=== PATIENT | female | born 1990 | race Caucasian/White ===

== ENCOUNTER 2020-07-06 05:55 | Emergency (ER) | payer SELFPAY ==
[2020-07-06] VITALS (8 sets, daily range): BP systolic 103–131; BP diastolic 64–90; PULSE 85–109; RESP 14–19; TEMP 36.8; O2SAT 98–99; BMI 23.0
--- NOTE | 2020-07-06 06:08 | ED_ITS ---
HPI - Abdominal Pain General: Chief Complaint: Abdominal Pain Stated Complaint: n/v Time Seen by Provider: 07/06/20 05:57 History of Present Illness: HPI narrative: Patient is a 30-year-old female that presents with upper abdominal pain. Patient states she has been having this symptoms for the past 2 weeks. She states they have been fairly constant but intermittently become worse. She reports associated nausea and vomiting with this. She denies fevers or chills. She states eating and drinking makes symptoms worse. She denies any diarrhea or constipation. She denies urinary symptoms. Her last menstrual cycle was a week ago. She denies any prior surgeries. She denies radiation of the pain. MD elicited complaint: abdominal pain Pertinent past history: none Onset (ago): week(s) Location: Epigastric, LUQ and RUQ Severity: moderate Radiation: none Exacerbating factors: eating Associated Symptoms: Reports nausea and vomiting; Denies change in stool character, constipation, diarrhea, dysuria, fever(s), hematuria, melena and syncope Review of Systems General: Reports: 10 or more systems reviewed and unremarkable except in HPI and below Const: Denies: fever(s) Eyes: Denies: blurry vision ENMT: Denies: nasal congestion Card: Denies: chest pain, palpitations, syncope or dyspnea on exertion Resp: Denies: dyspnea or productive cough GI: Reports: nausea and vomiting; Denies: diarrhea, constipation, change in stool character or melena : Denies: dysuria or hematuria Musc: Denies: neck pain or back pain Skin/Breast: Denies: rash or new lesions Neuro: Denies: headache(s) or dizziness Psych: Denies: anxiety Chauncey/Lymph: Denies: easy bleeding, petechiae or purpura Physical Exam Const: COMMON NORMALS: no acute distress, patient oriented x3, alert and well nourished HENMT: COMMON NORMALS: normocephalic, atraumatic, EAC's normal, TM's normal bilaterally and Normal external nose present HEAD & SCALP: normocephalic and atraumatic FACE & SINUS: normal facial exam and face symmetric NOSE: Normal external nose present EXTERNAL AUDITORY CANAL: EAC's normal TYMPANIC MEMBRANE: TM's normal bilaterally MOUTH: Normal oral and palatal mucosa present and moist mucous membranes abnormal Eye: COMMON NORMALS: Equal, round and reactive pupils present PUPIL: Yes Equal, round and reactive pupils present Neck/C-Spine: GENERAL: Yes normal visual inspection Chest: COMMONS NORMALS: normal inspection of the chest Resp: COMMON NORMALS: normal respiratory effort, No retractions, No use of accessory muscles and clear to auscultation bilaterally AUSCULTATION: clear to auscultation bilaterally Cardio: COMMON NORMALS: regular rate, regular rhythm, S1 normal heart sound present, S2 normal heart sound present and No murmurs present (Cardio) RATE: regular rate RHYTHM: regular rhythm HEART SOUNDS: S1 normal heart sound present and S2 normal heart sound present GI: COMMON NORMALS: No hepatosplenomegaly present INSPECTION: Yes normal to inspection AUSCULTATION: Yes normoactive bowel sounds PALPATION: Yes Tenderness to palpation present (GI), Yes Guarding due to palpation present (GI) and Yes No hepatosplenomegaly present RECTAL EXAM: deferred : COMMON NORMALS: Yes no CVA tenderness BLADDER/KIDNEY EXAM: Yes no CVA tenderness Back/Pelvis: COMMON NORMALS: no CVA tenderness Neuro: COMMON NORMALS: patient oriented x3 and moves all extremities SENSORIUM/ORIENTATION: Yes alert SPEECH: speech normal Psych: COMMON NORMALS: mental status grossly normal Skin: COMMON NORMALS: no rashes or lesions noted GENERAL SKIN EXAM: no rashes or lesions noted Course Vital Signs: Vital signs: Vital Signs Temperature 98.2 F 07/06/20 06:03 Pulse Rate 98 07/06/20 08:18 Respiratory Rate 15 07/06/20 08:18 Blood Pressure 103/64 07/06/20 08:18 Pulse Oximetry 99 07/06/20 08:18 MDM - Abdominal Pain MDM Narrative: Medical decision making narrative: Patient remained stable in ED. Lab work is fairly unremarkable with exception of mildly elevated anion gap and elevated total bilirubin. Ultrasound will be obtained for further evaluation of her gallbladder and pancreas. Ultrasound shows no acute abnormalities. On reevaluation patient still having some mild guarding and tenderness. CT of her abdomen pelvis was obtained which shows no acute abnormalities other than a small left-sided ovarian cyst. We will place her on Carafate, Reglan and omeprazole for possible ulcer. Discussed with her that she will need to follow-up with her primary care doctor she may need an EGD for additional evaluation as an outpatient. Discussed signs symptoms that warrant return to the ED otherwise follow-up with her primary care doctor as discussed. She voiced understanding is agreeable to the plan of care. Lab Data: Labs: Lab Results 07/06/20 07/06/20 07/06/20 Range/Units 06:25 06:25 06:25 WBC 4.8 (4.0-10.0) 10^3/ uL RBC 4.22 (4.1-5.3) 10^6/u L Hgb 12.6 (11.5-15.3) g/dL Hct 37.9 (37.0-47.0) % MCV 89.8 (81-99) fL MCH 29.9 (28.0-34.0) pg MCHC 33.2 (30.0-36.0) g/dL RDW 12.2 (12.1-15.1) % Plt Count 227 (130-400) 10^3/c mm MPV 9.7 (7.4-10.4) fL Neut % (Auto) 66.0 % Lymph % (Auto) 25.1 % Slope % (Auto) 7.5 % Eos % (Auto) 0.8 % Baso % (Auto) 0.6 % Neut # (Auto) 3.18 (1.8-7.7) 10^3/u L Lymph # (Auto) 1.2 (0.8-4.8) 10^3/u L Slope # (Auto) 0.4 (0.2-0.9) 10^3/u L Eos # (Auto) 0.0 (0.0-0.8) 10^3/u L Baso # (Auto) 0.0 (0.0-0.1) 10^3/u L Nucleated RBC % (a uto) 0 % Nucleated RBCs # 0.0 /100WBC Sodium 136 (136-145) mmol/L Potassium 3.5 (3.5-5.1) mmol/L Chloride 99 (98-107) mmol/L Carbon Dioxide 19 L (22-29) mmol/L Anion Gap 21.5 H (5-19) BUN 10 (6-20) mg/dL Creatinine 0.6 (0.5-0.9) mg/dL GFR Calculation 119.0 (90-130) mL/min Glucose 104 (65-115) mg/dL Calculated Osmolal ity 281 L (285-295) mOsm/k g Calcium 9.2 (8.5-10.5) mg/dL Total Bilirubin 1.9 H (0.15-1.2) mg/dL AST 11 (0-32) U/L ALT 11 (0-33) U/L Alkaline Phosphata se 53 (35-105) IU/L C-Reactive Protein 2.8 (0.0-4.9) mg/L Total Protein 7.6 (6.6-8.7) g/dL Albumin 4.6 (3.5-5.2) g/dL Globulin 3.0 (1.3-4.6) g/dL Lipase 20 (13-60) U/L HCG, Qual Negative (Negative) Urine Color (Yellow) Urine Appearance (CLEAR) Urine pH (5-7) Ur Specific Gravit y (1.005-1.030) Urine Protein (Negative) Urine Glucose (UA) (Normal) Urine Ketones (Negative) Urine Blood (Negative) Urine Nitrate (Negative) Urine Bilirubin (Negative) Urine Urobilinogen (Negative) mg/dL Ur Leukocyte Penny ase (Negative) Urine RBC (0-2) /hpf Urine WBC (0-5) /hpf Ur Squamous Epith Cells (0-5) /hpf Amorphous Sediment Urine Bacteria (NONE) /hpf Urine Mucus /hpf 07/06/ Range/Units 06:25 WBC (4.0-10.0) 10^3/ uL RBC (4.1-5.3) 10^6/u L Hgb (11.5-15.3) g/dL Hct (37.0-47.0) % MCV (81-99) fL MCH (28.0-34.0) pg MCHC (30.0-36.0) g/dL RDW (12.1-15.1) % Plt Count (130-400) 10^3/c mm MPV (7.4-10.4) fL Neut % (Auto) % Lymph % (Auto) % Slope % (Auto) % Eos % (Auto) % Baso % (Auto) % Neut # (Auto) (1.8-7.7) 10^3/u L Lymph # (Auto) (0.8-4.8) 10^3/u L Slope # (Auto) (0.2-0.9) 10^3/u L Eos # (Auto) (0.0-0.8) 10^3/u L Baso # (Auto) (0.0-0.1) 10^3/u L Nucleated RBC % (a uto) % Nucleated RBCs # /100WBC Sodium (136-145) mmol/L Potassium (3.5-5.1) mmol/L Chloride (98-107) mmol/L Carbon Dioxide (22-29) mmol/L Anion Gap (5-19) BUN (6-20) mg/dL Creatinine (0.5-0.9) mg/dL GFR Calculation (90-130) mL/min Glucose (65-115) mg/dL Calculated Osmolal ity (285-295) mOsm/k g Calcium (8.5-10.5) mg/dL Total Bilirubin (0.15-1.2) mg/dL AST (0-32) U/L ALT (0-33) U/L Alkaline Phosphata se (35-105) IU/L C-Reactive Protein (0.0-4.9) mg/L Total Protein (6.6-8.7) g/dL Albumin (3.5-5.2) g/dL Globulin (1.3-4.6) g/dL Lipase (13-60) U/L HCG, Qual (Negative) Urine Color Yellow (Yellow) Urine Appearance Hazy A (CLEAR) Urine pH 5 (5-7) Ur Specific Gravit y 1.025 (1.005-1.030) Urine Protein Neg (Negative) Urine Glucose (UA) Norm (Normal) Urine Ketones 3+ H (Negative) Urine Blood Neg (Negative) Urine Nitrate Negative (Negative) Urine Bilirubin Neg (Negative) Urine Urobilinogen Norm (Negative) mg/dL Ur Leukocyte Penny ase Trace H (Negative) Urine RBC 0-4 H (0-2) /hpf Urine WBC 5-10 H (0-5) /hpf Ur Squamous Epith Cells 0-4 H (0-5) /hpf Amorphous Sediment Not Reportable Urine Bacteria 1+ H (NONE) /hpf Urine Mucus Trace /hpf Discharge Plan Discharge Patient Disposition: Home Clinical Impression: Abdominal pain Qualifiers: Abdominal location: generalized Qualified Code(s): R10.84 - Generalized abdominal pain Condition: Good Prescriptions: New Reglan 10 mg tablet 10 mg PO Q6H 7 Days Qty: 28 RF: 0 Carafate 1 gram tablet 1 g PO Q6H Qty: 40 RF: 0 omeprazole 40 mg capsule,delayed release(DR/EC) 40 mg PO DAILY Qty: 30 RF: 0 Discharge Orders: Discharge ED (Routine); Ordered 07/06/20 Ordered By: Rome Ortiz Discharge Diet: Advance as tolerated Discharge Activity: Resume usual activity Patient Instructions: Abdominal Pain (ED) Activity Restrictions/Additional Instructions: Take your medications as prescribed. Begin with a clear liquid diet and gradually advance to your normal diet as tolerated. Follow-up with your primary care doctor in the next 7 to 10 days. You may need additional evaluation with an EGD to rule out any potential ulcers. Return to the ED if symptoms return or worsen. Coding Level of Care Code ED Property Management Coordinator for Demetri Fwd Exam Comprehensive
[2020-07-06] MEDS: ondansetron 2 mg/ML SDV 2 mL 4 MG IVP (06:29)
[2020-07-06] MEDS: sodium chloride 0.9% 1,000 ML 999 ML IV (06:30)
[2020-07-06] MEDS: ketorolac 30 mg/mL INJ IVP (06:30)
[2020-07-06 06:32] LABS: Basophils % 0.6 %; Eosinophils % 0.8 %; Hematocrit 37.9 % (37.0-47.0); Hemoglobin 12.6 g/dL (11.5-15.3); Lymphocytes # 1.2 10^3/uL (0.8-4.8); Lymphocytes % 25.1 %; Mean Corpuscular HGB Conc 33.2 g/dL (30.0-36.0); Mean Corpuscular Hemoglobin 29.9 pg (28.0-34.0); Mean Corpuscular Volume 89.8 fL (81-99); Mean Platelet Volume 9.7 fL (7.4-10.4); Monocytes # 0.4 10^3/uL (0.2-0.9); Monocytes % 7.5 %; Neutrophils # 3.18 10^3/uL (1.8-7.7); Nucleated Red Blood Cells % 0 %; Platelet Count 227 10^3/cmm (130-400); Red Blood Count 4.22 10^6/uL (4.1-5.3); Red Cell Distribution Width 12.2 % (12.1-15.1); White Blood Count 4.8 10^3/uL (4.0-10.0)
[2020-07-06 06:37] LABS: HCG Qualitative Urine. Negative (Negative)
[2020-07-06 06:42] LABS: Bilirubin Urine Neg (Negative); Blood Urine Neg (Negative); Glucose Urine UA Norm (Normal); Ketones Urine 3+ (Negative); Leukocyte Esterase Urine Trace (Negative); Nitrate Urine Negative (Negative); Protein Urine Neg (Negative); Specific Gravity, Urine 1.025 (1.005-1.030); Urine Appearance Hazy (CLEAR); Urine Color Yellow (Yellow); Urobilinogen Urine Norm (Negative); pH Urine 5 (5-7)
[2020-07-06 06:43] LABS: Add Urine Microscopic? YES
[2020-07-06 06:44] LABS: RBC Urine 0-4 /hpf (0-2)
[2020-07-06 06:45] LABS: Add Urine Culture? No; Bacteria Urine 1+ /hpf; Mucus Urine TRACE /hpf; Squamous Epithelial Cell Urine 0-4 /hpf (0-5)
[2020-07-06 06:48] LABS: Alanine Aminotransferase 11 U/L (0-33); Albumin Level 4.6 g/dL (3.5-5.2); Alkaline Phosphatase 53 IU/L (35-105); Anion Gap 21.5 (5-19); Aspartate Amino Transferase 11 U/L (0-32); Blood Urea Nitrogen 10 mg/dL (6-20); C Reactive Protein 2.8 mg/L (0.0-4.9); Calcium 9.2 mg/dL (8.5-10.5); Carbon Dioxide 19 mmol/L (22-29); Chloride 99 mmol/L (98-107); Glucose 104 mg/dL (65-115); Lipase 20 U/L (13-60); Osmolality Calculated 281 mOsm/kg (285-295); Potassium 3.5 mmol/L (3.5-5.1); Sodium 136 mmol/L (136-145); Total Bilirubin 1.9 mg/dL (0.15-1.2); Total Protein 7.6 g/dL (6.6-8.7)
--- NOTE | 2020-07-06 06:50 | US_ITS ---
WS: [id number] ULTRASOUND ABDOMEN LIMITED CLINICAL INFORMATION: epigastric/RUQ pain - elevated total bilirubin COMPARISON: None. FINDINGS: Liver Size: Normal. Craniocaudal length: 13.2 cm. Echogenicity: Normal. Surface nodularity: None. Mass (size and location): None. Bile ducts Intrahepatic ducts: Normal. Common bile duct diameter: 0.3 cm. Gallbladder Normal. Gallstones: None. Gallbladder sludge: None. Gallbladder wall thickening: None. Pericholecystic fluid: None. Sonographic Norman sign: Absent. Pancreas Normal as visualized. Right kidney: Normal. Hydronephrosis: None. Size: 9.2 cm x 4.6 cm x 4.1 cm. Abdominal aorta and IVC Visualized portions are normal. Ascites: None. US/US gall bladder [id number] IMPRESSION: Normal abdominal ultrasound
--- NOTE | 2020-07-06 06:55 | PC.NURSE ---
Report received from JAYLAN Herrera.
--- NOTE | 2020-07-06 07:38 | CT_ITS ---
WS: [id number] CT ABDOMEN PELVIS TECHNIQUE: Contrast-enhanced CT of the abdomen and pelvis with coronal and sagittal reformatted image s. CLINICAL INFORMATION: gen abd pain with guarding COMPARISON: CT 2017 DLP: 253.[address] scans at [facility] use at least one of these dose optimization techniques: automat ed exposure control; mA and/or kV adjustment per patient size (includes targeted exams where dose is matched to clinical indication); or iterative reconstruction. FINDINGS: Normal liver. Normal portal vein and splenic vein. Adrenal glands are normal. Normal renal parenchyma l enhancement. Normal spleen. Lung bases are well aerated. Normal GE junction. Normal caliber abdomin al aorta. Tiny fat-containing umbilical hernia. Normal gallbladder. No abdominal or pelvic lymphadenopathy. No evidence of acute appendicitis. No hamzah dence of high-grade small or large bowel obstruction. Small amount of free fluid in the pelvis. Small bilateral ovarian cysts largest in the left measuring 7 mm. No inguinal lymphadenopathy. CT/CT abdomen pelvis w con* [id number] IMPRESSION: 1. Normal appendix. No evidence of acute appendicitis. 2. No evidence of high-grade small or large bowel obstruction. 3. Small amount of free fluid in the pelvis. Small left ovarian cyst measuring 10 mm. 4. No hydronephrosis. No other significant findings. Notified Rome Ortiz DO at 07/06/2020 8:37 AM.
[2020-07-06] MEDS: morphine 4 mg/mL SDV 1 mL IVP (07:51)
[2020-07-06] MEDS: iohexol 300 mg/mL 100 mL Btl IV (08:17)
== END 2020-07-06 08:56 | disposition home or self-care (01) ==
PROVIDERS: Emergency Provider Emergency Medicine
DX: R10.84 Generalized abdominal pain (principal)
CPT/HCPCS: 74177; 76705; 80053; 81001; 81025; 83690; 85025; 86140; 96361; 96374; 96375; 99283; J1885; J2270; J2405; J7030; Q9967

== ENCOUNTER 2020-07-11 13:02 | Emergency (ER) | payer SELFPAY ==
[2020-07-11 13:29] VITALS: BP 123/75; PULSE 87; RESP 16; TEMP 36.7; O2SAT 97; BMI 22.2
--- NOTE | 2020-07-11 15:15 | CTR_ITS ---
PROCEDURE INFORMATION: Exam: CT Abdomen And Pelvis With Contrast Exam date and time: 07/11/2020 4:34 PM Age: 30 years old Clinical indication: Abdominal pain; Localized; Right lower quadrant (rlq); Patient HX: Shaking, rlq pain, n/v. Last bm x 1 week TECHNIQUE: Imaging protocol: Computed tomography of the abdomen and pelvis with contrast. Axial, coronal and sagittal reformatted images were created and reviewed. Radiation optimization: All CT scans at this facility use at least one of these dose optimization techniques: automated exposure control; mA and/or kV adjustment per patient size (includes targeted exams where dose is matched to clinical indication); or iterative reconstruction. Contrast material: OMNI 300; Contrast volume: 75 ml; Contrast route: INTRAVENOUS (IV); COMPARISON: CT abdomen pelvis w con* [id number] 07/06/2020 8:25 AM RADIATION DOSE METRICS: Total DLP (mGy-cm): 505.46 FINDINGS: Liver: Unremarkable. Gallbladder and bile ducts: No radiodense gallstones. No biliary ductal dilatation. Pancreas: Unremarkable. Spleen: Unremarkable. Adrenal glands: Normal. No mass. Kidneys and ureters: No mass. No radiodense calculi. No hydronephrosis. Stomach and bowel: Moderate amount of retained stool in the colon. No obstruction. No bowel wall thickening. No pneumatosis. Appendix: Normal. Intraperitoneal space: Trace nonspecific free pelvic fluid, likely physiologic. No organized fluid collection. No free air. Vasculature: Unremarkable. No aneurysm. Lymph nodes: No pathologically enlarged lymph nodes. Urinary bladder: Unremarkable as visualized. Reproductive: Unremarkable. Bones/joints: No acute osseous abnormality. Soft tissues: Unremarkable. CT/CT abdomen pelvis w con* [id number] [address]PRESSION: 1. No CT evidence of acute intra-abdominal or pelvic pathology. 2. Additional findings, as above. Radiation Dose CTDIVOL = (mGy): DLP = 505.46 (mGy-cm)
[2020-07-11 15:40] VITALS: BP 116/80; PULSE 97; RESP 20; O2SAT 98
[2020-07-11 15:56] LABS: HCG Qualitative Urine. Negative (Negative)
[2020-07-11 16:02] LABS: Add Urine Microscopic? YES; Bilirubin Urine Neg (Negative); Blood Urine 3+ (Negative); Glucose Urine UA Norm (Normal); Ketones Urine 3+ (Negative); Leukocyte Esterase Urine Negative (Negative); Nitrate Urine Negative (Negative); Protein Urine Neg (Negative); Specific Gravity, Urine 1.015 (1.005-1.030); Urine Appearance Clear (CLEAR); Urine Color Yellow (Yellow); Urobilinogen Urine Norm (Negative); pH Urine 5 (5-7)
[2020-07-11 16:03] LABS: Add Urine Culture? No; Bacteria Urine TRACE /hpf; RBC Urine 0-4 /hpf (0-2); Squamous Epithelial Cell Urine RARE /hpf (0-5)
--- NOTE | 2020-07-11 16:14 | ED_ITS ---
HPI - General Adult General: Chief complaint: General Medical Stated complaint: VAGINAL BLEED/SHAKING Time Seen by Provider: 07/11/20 14:21 Source: patient and family (mother) Mode of arrival: ambulatory Limitations: no limitations History of Present Illness: HPI narrative: The patient is a 30-year-old female. She is here with her mother. Unfortunately neither the patient nor her mother is a good historian and so a proper history is difficult to obtain. The patient presents with abdominal pain which both the mother and the patient think is due to a stomach ulcer. However the pain is in her lower abdomen. Pain appears to be worse on eating according to the mother but the patient says there is no known aggravating or relieving factor. She denies any nausea or vomiting. She complains of a headache. She also complains of vaginal spotting but she is unsure if this is her regular menstrual cycle that has started. She denies any urinary symptoms, denies diarrhea. She also says she started shaking today. Onset (ago): day(s) (1) Associated symptoms: Reports headache(s); Deny dyspnea, nausea, rash, palpitations or vomiting Review of Systems General: Reports: 10 or more systems reviewed and unremarkable except in HPI and below Const: Denies: fever(s), chills or body aches Eyes: Denies: change in vision or blurry vision ENMT: Denies: throat pain, enlarged tonsils, odynophagia, hoarseness, mouth pain or swelling of lips/tongue Card: Denies: palpitations, irregular heart rhythm, edema or swelling of feet/ankles Resp: Denies: dyspnea, productive cough or non-productive cough GI: Reports: abdominal pain; Denies: nausea or vomiting : Denies: flank pain, difficulty voiding, dysuria, urinary frequency, urinary urgency or urinary hesitancy Musc: Denies: neck pain, back pain or extremity swelling Skin/Breast: Denies: rash, pruritus or erythema Neuro: Reports: headache(s); Denies: numbness in extremities or weakness in extremities Endo: Denies: polyuria, polydipsia or tired all the time [facility] ED Female Reproductive History: Date of last menstrual period: 06/24/20 Physical Exam Const: COMMON NORMALS: no acute distress, average body habitus, patient oriented x3, no limitations, healthy appearing, alert and well nourished HENMT: COMMON NORMALS: normocephalic, atraumatic and moist oral mucous membranes HEAD & SCALP: normocephalic and atraumatic Neck/C-Spine: COMMON NORMALS: no meningeal signs and no JVD Resp: COMMON NORMALS: normal respiratory effort, No retractions, No use of accessory muscles, clear to auscultation bilaterally and percussion normal AUSCULTATION: clear to auscultation bilaterally PERCUSSION: percussion normal Cardio: COMMON NORMALS: no JVD, regular rate, regular rhythm, S1 normal heart sound present, S2 normal heart sound present, No gallops present (Cardio), No clicks present (Cardio), No murmurs present (Cardio), No rub (Cardio) and Peripheral pulses 2+ throughout RATE: regular rate RHYTHM: regular rhythm HEART SOUNDS: S1 normal heart sound present and S2 normal heart sound present PERIPHERAL PULSES: Peripheral pulses 2+ throughout GI: COMMON NORMALS: Normal to inspection, nondistended, normoactive bowel sounds present, Soft to palpation, No hepatosplenomegaly present, no masses and no bruits PALPATION: Yes Soft to palpation, Yes Tenderness to palpation present (GI) Details: LLQ and RLQ, No Guarding due to palpation present (GI), No Rigid due to palpation, Yes No hepatosplenomegaly present and No Rebound tenderness present Extremity: COMMON NORMALS: normal to inspection, full ROM, capillary refill normal, no calf tenderness and no pedal edema Neuro: COMMON NORMALS: patient oriented x3 SENSORIUM/ORIENTATION: Yes alert MENINGEAL SIGNS: Yes no meningeal signs Skin: COMMON NORMALS: no rashes or lesions noted, no wounds, turgor normal, no jaundice, no petechiae and no mottling GENERAL SKIN EXAM: no rashes or lesions noted and turgor normal Course Reevaluation(s): Reevaluation #1: Discussed her lab and imaging findings with her. Explained that her lipase is mildly elevated and she probably has a mild case of acute pancreatitis. Other labs and imaging are unremarkable. We will discharge her home with a prescription for oral pain medication. She is advised to consume a liquid diet and advance her diet as tolerated. The patient and her mother voiced understanding and they are in agreement with the plan Time: 18:16 Vital Signs: Vital signs: Vital Signs Temperature 98.1 F 03/02/21 13:29 Pulse Rate 96 07/11/20 18:34 Respiratory Rate 16 07/11/20 18:34 Blood Pressure 125/89 07/11/20 18:34 Pulse Oximetry 97 07/11/20 18:34 MDM - General Adult MDM Narrative: Medical decision making narrative: 30-year-old female patient who presents to the emergency department with abdominal pain. She was seen recently for the same thing and diagnosed with gastritis. Today evaluation shows a mildly elevated lipase being managed as a case of acute pancreatitis. She is discharged home with oral pain medication and dietary modification until her pain resolves. Her mother is also concerned that she may have a stomach ulcer or gastritis and so an outpatient endoscopy will be done on this patient. A referral to case management was done for this. Medical Records: Attestation: I reviewed the patient's medical records. Lab Data: Attestation: I reviewed the patient's lab results. Labs: Lab Results 07/11/20 07/11/20 07/11/20 Range/Units 14:30 14:30 15:36 WBC Cancelled Corrected WBC Cancelled RBC Cancelled Hgb Cancelled Hct Cancelled MCV Cancelled MCH Cancelled MCHC Cancelled RDW Cancelled Plt Count Cancelled MPV Cancelled Gran % Cancelled Neut % (Auto) Cancelled Lymph % (Auto) Cancelled [place] % (Auto) Cancelled Eos % (Auto) Cancelled Baso % (Auto) Cancelled Neut # (Auto) Cancelled Lymph # (Auto) Cancelled [place] # (Auto) Cancelled Eos # (Auto) Cancelled Baso # (Auto) Cancelled Absolute Gran (aut o) Cancelled Nucleated RBC % (a uto) Cancelled Nucleated RBCs # Cancelled Sodium (136-145) mmol/L Potassium (3.5-5.1) mmol/L Chloride (98-107) mmol/L Carbon Dioxide (22-29) mmol/L Anion Gap (5-19) BUN (6-20) mg/dL Creatinine (0.5-0.9) mg/dL GFR Calculation (90-130) mL/min Glucose (65-115) mg/dL Calculated Osmolal ity (285-295) mOsm/k g Calcium (8.5-10.5) mg/dL Total Bilirubin (0.15-1.2) mg/dL AST (0-32) U/L ALT (0-33) U/L Alkaline Phosphata se (35-105) IU/L C-Reactive Protein (0.0-4.9) mg/L Total Protein (6.6-8.7) g/dL Albumin (3.5-5.2) g/dL Globulin (1.3-4.6) g/dL Lipase (13-60) U/L HCG, Qual Negative (Negative) Urine Color Yellow (Yellow) Urine Appearance Clear (CLEAR) Urine pH 5 (5-7) Ur Specific Gravit y 1.015 (1.005-1.030) Urine Protein Neg (Negative) Urine Glucose (UA) Norm (Normal) Urine Ketones 3+ H (Negative) Urine Blood 3+ H (Negative) Urine Nitrate Negative (Negative) Urine Bilirubin Neg (Negative) Urine Urobilinogen Norm (Negative) mg/dL Ur Leukocyte Penny ase Negative (Negative) Urine RBC 0-4 H (0-2) /hpf Urine WBC None (0-5) /hpf Ur Squamous Epith Cells Rare (0-5) /hpf Amorphous Sediment Not Reportable Urine Bacteria Trace (NONE) /hpf 07/11/20 07/11/20 Range/Units 15:36 16:28 WBC 3.6 L Corrected WBC RBC 4.08 L Hgb 12.6 Hct 36.5 L MCV 89.5 MCH 30.9 MCHC 34.5 RDW 12.7 Plt Count 228 MPV 10.1 Gran % Neut % (Auto) 53.0 Lymph % (Auto) 34.8 [place] % (Auto) 10.7 Eos % (Auto) 0.6 Baso % (Auto) 0.6 Neut # (Auto) 1.89 Lymph # (Auto) 1.2 [place] # (Auto) 0.4 Eos # (Auto) 0.0 Baso # (Auto) 0.0 Absolute Gran (aut o) Nucleated RBC % (a uto) 0 Nucleated RBCs # 0.0 Sodium 141 (136-145) mmol/L Potassium 3.5 (3.5-5.1) mmol/L Chloride 103 (98-107) mmol/L Carbon Dioxide 20 L (22-29) mmol/L Anion Gap 21.4 H (5-19) BUN 3 L (6-20) mg/dL Creatinine 0.6 (0.5-0.9) mg/dL GFR Calculation 119.0 (90-130) mL/min Glucose 89 (65-115) mg/dL Calculated Osmolal ity 288 (285-295) mOsm/k g Calcium 9.1 (8.5-10.5) mg/dL Total Bilirubin 1.0 (0.15-1.2) mg/dL AST 11 (0-32) U/L ALT 11 (0-33) U/L Alkaline Phosphata se 56 (35-105) IU/L C-Reactive Protein 1.7 (0.0-4.9) mg/L Total Protein 7.7 (6.6-8.7) g/dL Albumin 4.7 (3.5-5.2) g/dL Globulin 3.0 (1.3-4.6) g/dL Lipase 79 H (13-60) U/L HCG, Qual (Negative) Urine Color (Yellow) Urine Appearance (CLEAR) Urine pH (5-7) Ur Specific Gravit y (1.005-1.030) Urine Protein (Negative) Urine Glucose (UA) (Normal) Urine Ketones (Negative) Urine Blood (Negative) Urine Nitrate (Negative) Urine Bilirubin (Negative) Urine Urobilinogen (Negative) mg/dL Ur Leukocyte Penny ase (Negative) Urine RBC (0-2) /hpf Urine WBC (0-5) /hpf Ur Squamous Epith Cells (0-5) /hpf Amorphous Sediment Urine Bacteria (NONE) /hpf Imaging Data^: CT Abd/Pel: Attestation: I personally reviewed and interpreted this imaging study as follows: Radiologist's impression: [address] [address] [address] Scan Report Signed Patient: Vicky Pal #: [id number] : 1990Acct#:[id number] Age/Sex: 30 FADM Date: 07/11/20 Loc: ERRoom/Bed: Attending Dr: Ordering Provider/Ordering MD: Melanie Bloom MD, [facility] [place] Date of Service: 07/11/20 Procedure(s): CT abdomen pelvis w con* [id number] Accession Number(s): [id number] Report Number: [id number] PROCEDURE INFORMATION: Exam: CT Abdomen And Pelvis With Contrast Exam date and time: 07/11/2020 4:34 PM Age: 30 years old Clinical indication: Abdominal pain; Localized; Right lower quadrant (rlq); Patient HX: Shaking, rlq pain, n/v. Last bm x 1 week TECHNIQUE: Imaging protocol: Computed tomography of the abdomen and pelvis with contrast. Axial, coronal and sagittal reformatted images were created and reviewed. Radiation optimization: All CT scans at this facility use at least one of these dose optimization techniques: automated exposure control; mA and/or kV adjustment per patient size (includes targeted exams where dose is matched to clinical indication); or iterative reconstruction. Contrast material: OMNI 300; Contrast volume: 75 ml; Contrast route: INTRAVENOUS (IV); COMPARISON: CT abdomen pelvis w con* [id number] 07/06/2020 8:25 AM RADIATION DOSE METRICS: Total DLP (mGy-cm): 505.46 FINDINGS: Liver: Unremarkable. Gallbladder and bile ducts: No radiodense gallstones. No biliary ductal dilatation. Pancreas: Unremarkable. Spleen: Unremarkable. Adrenal glands: Normal. No mass. Kidneys and ureters: No mass. No radiodense calculi. No hydronephrosis. Stomach and bowel: Moderate amount of retained stool in the colon. No obstruction. No bowel wall thickening. No pneumatosis. Appendix: Normal. Intraperitoneal space: Trace nonspecific free pelvic fluid, likely physiologic. No organized fluid collection. No free air. Vasculature: Unremarkable. No aneurysm. Lymph nodes: No pathologically enlarged lymph nodes. Urinary bladder: Unremarkable as visualized. Reproductive: Unremarkable. Bones/joints: No acute osseous abnormality. Soft tissues: Unremarkable. CT/CT abdomen pelvis w con* [id number]: 1[address] No CT evidence of acute intra-abdominal or pelvic pathology. 2. Additional findings, as above. Radiation Dose CTDIVOL = (mGy): DLP = 505.46 (mGy-cm) Dictated By:Ethan Shultz MD Signed By:Ethan Shultzigned Date/Time:07/11/201712 DD/ 10 Discharge Plan Discharge Patient Disposition: Home Clinical Impression: Acute pancreatitis Qualifiers: Pancreatitis type: unspecified pancreatitis type Acute pancreatitis complication: no infection or necrosis Qualified Code(s): K85.90 - Acute pancreatitis without necrosis or infection, unspecified Condition: Stable Prescriptions: [place] 5-325 mg tablet 1 tab PO Q8H PRN (Reason: pancreatitis) Qty: 12 RF: 0 Continued metoclopramide HCl [Reglan] 10 mg tablet 10 mg PO Q6H 7 Days Qty: 28 RF: 0 sucralfate [Carafate] 1 gram tablet 1 g PO Q6H Qty: 40 RF: 0 omeprazole 40 mg capsule,delayed release(DR/EC) 40 mg PO DAILY@07 RF: 0 Discharge Orders: Discharge ED (Routine); Ordered 07/11/20 Ordered By: Melanie Bloom Discharge Diet: As Directed Discharge Activity: Increase activity as tolerated Patient Instructions: Pancreatitis (ED), Opioid Safety Activity Restrictions/Additional Instructions: Return for any new or worsening symptoms. Follow-up with your primary care provider tomorrow as scheduled. You will be contacted to schedule an upper GI endoscopy to evaluate to see if you have stomach ulcers. Consume a liquid diet for the next 2 days and if your pain is improving you can advance to a soft diet, then a semisolid diet, then regular diet. If at any time your symptoms get worse or you are unable to keep any food or liquid down please return to be seen. Coding Level of Care Code ED Cnc Operator Machinist for Demetri Fwhannah Exam Comprehensive
[2020-07-11 16:30] VITALS: BP 120/85; PULSE 95; RESP 18; O2SAT 98
[2020-07-11 16:35] LABS: Basophils % 0.6 %; Eosinophils % 0.6 %; Hematocrit 36.5 % (37.0-47.0); Hemoglobin 12.6 g/dL (11.5-15.3); Lymphocytes # 1.2 10^3/uL (0.8-4.8); Lymphocytes % 34.8 %; Mean Corpuscular HGB Conc 34.5 g/dL (30.0-36.0); Mean Corpuscular Hemoglobin 30.9 pg (28.0-34.0); Mean Corpuscular Volume 89.5 fL (81-99); Mean Platelet Volume 10.1 fL (7.4-10.4); Monocytes # 0.4 10^3/uL (0.2-0.9); Monocytes % 10.7 %; Neutrophils # 1.89 10^3/uL (1.8-7.7); Nucleated Red Blood Cells % 0 %; Platelet Count 228 10^3/cmm (130-400); Red Blood Count 4.08 10^6/uL (4.1-5.3); Red Cell Distribution Width 12.7 % (12.1-15.1); White Blood Count 3.6 10^3/uL (4.0-10.0)
[2020-07-11 16:52] LABS: Alanine Aminotransferase 11 U/L (0-33); Albumin Level 4.7 g/dL (3.5-5.2); Alkaline Phosphatase 56 IU/L (35-105); Anion Gap 21.4 (5-19); Aspartate Amino Transferase 11 U/L (0-32); Blood Urea Nitrogen 3 mg/dL (6-20); C Reactive Protein 1.7 mg/L (0.0-4.9); Calcium 9.1 mg/dL (8.5-10.5); Carbon Dioxide 20 mmol/L (22-29); Chloride 103 mmol/L (98-107); Glucose 89 mg/dL (65-115); Lipase 79 U/L (13-60); Osmolality Calculated 288 mOsm/kg (285-295); Sodium 141 mmol/L (136-145); Total Protein 7.7 g/dL (6.6-8.7)
[2020-07-11] MEDS: iohexol 300 mg/mL 100 mL Btl IV (16:55)
[2020-07-11 16:57] LABS: Potassium 3.5 mmol/L (3.5-5.1)
[2020-07-11 17:43] VITALS: RESP 18; O2SAT 98
[2020-07-11] MEDS: morphine 4 mg/mL SDV 1 mL IVP (17:43)
[2020-07-11] MEDS: ondansetron 2 mg/ML SDV 2 mL 4 MG IVP (17:45)
[2020-07-11 18:34] VITALS: BP 125/89; PULSE 96; RESP 16; O2SAT 97
--- NOTE | 2020-07-12 12:15 | DCPLANNER ---
recycling program manager had message to schedule a follow up appointment for patient with [facility] General Surgery. recycling program manager e mailed patients information to both Birgit and Zenaida at [facility] General Surgery. Patients information will be printed and reviewed. Clinic will call patient with appointment information.
--- NOTE | 2020-07-13 12:39 | DCPLANNER ---
Patient has a follow up appointment scheduled for , July 20, 2020 at 11:[address] Monaco at [facility] General Surgery. Clinic will call patient with appointment information.
--- NOTE | 2020-08-02 15:37 | DCPLANNER ---
Patient had a follow up appointment scheduled for 07.20.[address] Monaco with general surgery - patient did attend appointment.
== END 2020-07-11 18:36 | disposition home or self-care (01) ==
PROVIDERS: Emergency Provider Family Medicine
DX: K85.90 Acute pancreatitis without necrosis or infection, unspecified (principal)
CPT/HCPCS: 36415; 74177; 80053; 81001; 81025; 83690; 85025; 86140; 96374; 96375; 99283; J2270; J2405; Q9967

== ENCOUNTER → 2020-07-20 12:16 | Outpatient (BNVA) | payer SELFPAY | PROVIDERS: Visit Provider Surgery | DX: R10.9 Unspecified abdominal pain (principal); Z20.822 Contact with and (suspected) exposure to COVID-19 | CPT/HCPCS: 87635 ==

== ENCOUNTER 2020-07-25 06:03 | Day surgery (SDC) | payer SELFPAY ==
[2020-07-21 09:14] VITALS: BMI 22.6
[2020-07-25 06:25] VITALS: BP 125/81; PULSE 77; RESP 18; TEMP 36.8; O2SAT 98
--- NOTE | 2020-07-25 06:25 | W.PM.OPSUD ---
Surgery/Procedure H&P Update DATE OF PROCEDURE: July 25, 2020 DATE H&P PERFORMED: 07/20/20 H&P UPDATE INFORMATION: I have reviewed H&P completed within last 30 days, I have examined patient prior to procedure and No changes to prior documentation PREOP DIAGNOSIS: Epigastric pain and hematemesis PRIMARY INDICATION FOR PROCEDURE: The same PLANNED PROCEDURE: Operation Date: 07/25/20 07:00 Proposed Procedures p EGD 88074 r10.9(Not Applicable) - Kavon Monaco MD
[2020-07-25] MEDS: sodium chloride 0.9% 1,000 ML 30 ML IV (06:46)
[2020-07-25 06:49] LABS: OR HCG Qualitative Urine Negative (Negative)
--- NOTE | 2020-07-25 06:58 | ANES.PREANE2 ---
Pre-Anesthetic Assessment Pre-Anesthetic Assessment: Height/Weight: Height 1.5 m Weight 50.802 kg Temp Pulse Resp BP Pulse Ox 98.2 F 77 18 125/81 98 07/25/20 06:25 07/25/20 06:25 07/25/20 06:25 07/25/20 06:25 07/25/20 06:25 Preop Diagnosis: Epigastric pain and hematemesis Proposed Procedure: Operation Date: 07/25/20 07:00 Proposed Procedures p EGD 33022 r10.9(Not Applicable) - Kavon Monaco MD Familial anesthetic complications: none Was Beta Carlene taken within 24 hours: N/A Was Clonidine taken within 24 hours: N/A Last intake: Intake Last Liquid Date 07/24/20 Last Liquid Time 22:00 Last Solid Date 07/24/20 Last Solid Time 19:00 Last Intake: 22:00 Social: Social History: No alcohol and No tobacco Exam: Pre-Anes Outpt Exam: alert, oriented x 3, clear to auscultation bilaterally and regular rate & rhythm Airway: Submandibular: WNL Cervical ROM: WNL MP: 2 Pulmonary: Pulmonary: None reported CV/HEM: CV/HEM: None reported : : None reported Hepatic: Hepatic: None reported GI: GI: GERD Metabolic: Metabolic: None reported Musc/skel: Musc/skel: None reported Neuropsych: Neuropsych: BROWN Anesthetic Plan: ASA status: 1 Anesthesia: MAC Risk of > 500 ml blood loss (7ml/kg in children): No Meds/Allergies Current Medications: Current Medications Generic Name Dose Route Start Last Admin Trade Name Freq PRN Reason Stop Dose Admin Sodium Chloride 1,000 mls @ 30 ml s/hr 07/25/20 06:30 07/25/20 06:46 Sodium Chloride 0.9% IV 30 mls/hr .Q24H AMANDA Administration PFSH Anesthesia PFSH: Family History Denies family history of Anesthesia complication Bleeding disorder Female Reproductive History: Date of last menstrual period: 07/10/20 Data Anesthesia Other Labs: Laboratory Results - last 48 hr 07/25/20 06:48 Urine HCG, Qual Negative Cardiac Studies: No Data to Display
[2020-07-25 07:18] VITALS: BP 99/60; PULSE 66; RESP 18; TEMP 36.5; O2SAT 97
--- NOTE | 2020-07-25 07:28 | ANE.PACU2 ---
Inpatient post-anesthesia follow up: Airway intact: Yes Vital signs: Temperature 98.2 F Pulse Rate 77 Respiratory Rate 18 Blood Pressure 125/81 Pulse Oximetry 98 Oxygen Delivery Me thod Room Air Oxygen Flow Rate Fraction of Inspir ed Oxygen Hydration adequate: Yes Nausea and vomiting: No Pain level: 1 Mental status: Baseline
[2020-07-25 07:38] VITALS: BP 107/71; PULSE 57; RESP 18; O2SAT 100
[2020-07-25 08:35] LABS: Thyroid Stimulating Hormone 1.35 uIU/mL (0.27-4.20)
--- NOTE | 2020-07-25 14:14 | ANE.PACU2 ---
Inpatient post-anesthesia follow up: Airway intact: Yes Vital signs: Temperature 97.7 F Pulse Rate 57 Respiratory Rate 18 Blood Pressure 107/71 Pulse Oximetry 100 Oxygen Delivery Me thod Room Air Oxygen Flow Rate Fraction of Inspir ed Oxygen Hydration adequate: Yes Nausea and vomiting: No Pain level: 1 Mental status: Baseline
[2020-07-27 13:43] LABS: H. Pylori / CLO Test Negative
== END 2020-07-25 08:05 | disposition home or self-care (01) ==
PROVIDERS: Anesthesiology; Visit Provider Surgery
PROC: 0DJ08ZZ Inspection of Upper Intestinal Tract, Via Natural or Artificial Opening Endoscopic (ICD-10-PCS; CPT 43235; principal; 2020-07-25 07:00)
DX: R10.13 Epigastric pain (principal); K92.0 Hematemesis; K31.89 Other diseases of stomach and duodenum; K29.70 Gastritis, unspecified, without bleeding
CPT/HCPCS: 36415; 43239; 81025; 84443; 84703; 87077; 96360; J2704; J7030

== ENCOUNTER 2020-08-10 06:39 | Outpatient (CLI) | payer SELFPAY ==
--- NOTE | 2020-08-10 08:00 | NM_ITS ---
WS: [id number] NUCLEAR MEDICINE GASTRIC EMPTYING EXAMINATION HISTORY: K31.84 - Gastroparesis COMPARISON: None available. TECHNIQUE: The patient ingested a meal containing 1.1 mCi of Tc 99m sulfur colloid mixed with eggs. The patient was placed in supine position and imaging over the abdomen was performed for a total of 1 20 minutes. Computer acquisition with the region of interest placed over the stomach to evaluate ronny joseph emptying half-time. Very limited excretion from the stomach. 120 minutes only 14% of the raw data has emptied from the st omach. NM/NM gastric emptying st [id number] IMPRESSION: Significant gastroparesis with marked delayed emptying of the stomach.
== END 2020-08-10 06:40 | disposition home or self-care (01) ==
LOC: RAD 06:41
PROVIDERS: Visit Provider Surgery
DX: K31.84 Gastroparesis (principal)
CPT/HCPCS: 78264; A9541

== ENCOUNTER 2020-08-14 08:13 | Outpatient (CLI) | payer SELFPAY ==
--- NOTE | 2020-08-14 10:00 | NM_ITS ---
WS: [id number] NUCLEAR MEDICINE HIDA SCAN CLINICAL INFORMATION: K31.84 - Gastroparesis TECHNIQUE: Following intravenous administration of 7.3 mCi of technetium 99m mebrofenin, images of th e abdomen were obtained over the course of 60 minutes. Next, gallbladder ejection fraction was determ ined by obtaining preprandial and one-hour postprandial images of the gallbladder following oral emili stion of Ensure. COMPARISON: None. FINDINGS: Normal hepatic uptake at 5 minutes. Gallbladder is visualized by 10 minutes. Normal small bowel and c ommon bile duct activity. Normal hepatic excretion. No evidence of acute cholecystitis. Gallbladder ejection fraction 86% within normal limits. No evidence of chronic cholecystitis. NM/NM hepatobiliary w phar* [id number] IMPRESSION: 1. No evidence of acute or chronic cholecystitis. 2. Normal gallbladder ejection fraction 86% within normal limits.
== END 2020-08-14 08:14 | disposition home or self-care (01) ==
LOC: NM 08:15
PROVIDERS: PCP Nurse Practitioner Family; Visit Provider Surgery
DX: K31.84 Gastroparesis (principal)
CPT/HCPCS: 78227; A9537

== ENCOUNTER → 2020-09-21 12:21 | Outpatient (BNVA) | payer SELFPAY | PROVIDERS: PCP Nurse Practitioner Family; Visit Provider Surgery | DX: K59.00 Constipation, unspecified (principal); Z20.822 Contact with and (suspected) exposure to COVID-19 | CPT/HCPCS: 87635 ==

== ENCOUNTER 2020-09-27 07:35 | Day surgery (SDC) | payer SELFPAY ==
[2020-09-25 14:04] VITALS: BMI 20.9
[2020-09-27 08:09] VITALS: BP 138/82; PULSE 90; RESP 18; TEMP 36.8; O2SAT 100
--- NOTE | 2020-09-27 08:10 | ANES.PREANE2 ---
Pre-Anesthetic Assessment Pre-Anesthetic Assessment: Height/Weight: Height 1.5 m Weight 47.174 kg Preop Diagnosis: Constipation Proposed Procedure: Operation Date: 09/27/20 08:45 Proposed Procedures p Colonoscopy 28949 k59.00(Not Applicable) - Kavon Monaco MD Was Beta Carlene taken within 24 hours: N/A Was Clonidine taken within 24 hours: N/A Social: Social History: No alcohol and No tobacco Exam: Pre-Anes Outpt Exam: alert, oriented x 3, clear to auscultation bilaterally and regular rate & rhythm Airway: Submandibular: WNL Cervical ROM: WNL MP: 2 Dentition: Full GI: GI: GERD Comments: gastroparesis Neuropsych: Neuropsych: Anxiety Anesthetic Plan: ASA status: 2 Anesthesia: MAC Risk of > 500 ml blood loss (7ml/kg in children): No PFSH Anesthesia PFSH: Medical History Constipation Family History Denies family history of Anesthesia complication Bleeding disorder Female Reproductive History: Date of last menstrual period: 08/29/20 Data Anesthesia Cardiac Studies: No Data to Display
--- NOTE | 2020-09-27 08:32 | P.HP_ITS ---
Same Day Surgery H&P Indication for Procedure/HPI DATE OF PROCEDURE: September 27, 2020 CHIEF COMPLAINT/INDICATIONFOR SURGICAL PROCEDURE: Constipation PREOP DIAGNOSIS: Constipation PLANNED PROCEDRUE: Operation Date: 09/27/20 08:45 Proposed Procedures p Colonoscopy 07730 k59.00(Not Applicable) - Kavon Monaco MD Patient comes today escorted by her older sister status post gastric emptying studies that did show; Significant gastroparesis with marked delayed emptying of the stomach. Also a HIDA scan was done and showed; 1. No evidence of acute or chronic cholecystitis. 2. Normal gallbladder ejection fraction 86% within normal limits. Patient continues to have chronic constipation although she does respond some to MiraLAX. Interim history 09/27/2020 Patient comes today for diagnostic colonoscopy ROS All systems have been reviewed negative except as per the above or per problem list. Medications/Allergies* Home Medications Medication Instructions Recorded Confirmed Type omeprazole 40 mg PO DAILY@07 07/11/20 09/25/20 History polyethylene glycol 3350 17 17 g PO DAILY 07/20/20 09/25/20 History gram/dose oral powder Allergies/Adverse Reactions Allergy/AdvReac Type Severity Reaction Status Date / Time No Known Allergies Allergy Verified 09/27/20 08:34 Pertinent History/Comorbid Conditions* Medical History (Updated 08/25/20 @ 15:59 by Kavon Monaco MD) Constipation Family History (Updated 07/20/20 @ 11:16 by Mariah Merino RN) Denies family history of Anesthesia complication Bleeding disorder Pertinent Exam Findings alert (Patient is anxious), oriented x 3, clear to auscultation bilaterally, regular rate & rhythm and procedure specific exam findings (Normal examination nontender nondistended soft) Recommendations Surgery/Procedure today (Diagnostic colonoscopy) Other Plans: Plan of care; After thorough history and physical examination and reviewing the chart, plan to perform diagnostic colonoscopy. I discussed with the patient in details the risks,benefits,alternatives and indications.The risk of aspiration, bleeding, soft tissue injury, perforation of the colon and other potential concomitant complications were explained to the patient in details,also the potential need for Laproscoy/Laparotomy to repair any related complications including but not limited to colectomy and or Closotomy.The patient understood this well and did agree to proceed. Rationale was carefully and clearly discussed with the patient.Appropriate informed consent have been reviewed and signed All questions have been answered and all concerns have been addressed to patient's satisfaction. Verbal and written Instructions were given to the patient for colonoscopy prep Coding Level of Care Code Acute Insurance Premium Auditor for Demetri Valenzuela
[2020-09-27] MEDS: sodium chloride 0.9% 1,000 ML 30 ML IV (08:38)
[2020-09-27] MEDS: midazolam 1 mg/mL INJ 2 mL 2 MG IVP (08:41)
[2020-09-27 09:24] VITALS: BP 97/56; PULSE 92; RESP 18; TEMP 36.2; O2SAT 94
[2020-09-27 09:30] VITALS: BP 92/52; PULSE 82; RESP 17; O2SAT 96
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
[2020-09-27 09:50] VITALS: BP 108/63; PULSE 84; RESP 16; TEMP 36.2; O2SAT 100
--- NOTE | 2020-09-27 13:30 | ANE.PACU2 ---
Inpatient post-anesthesia follow up: Airway intact: Yes Vital signs: Temperature 97.1 F Pulse Rate 84 Respiratory Rate 16 Blood Pressure 108/63 Pulse Oximetry 100 Oxygen Delivery Me thod Room Air Oxygen Flow Rate Fraction of Inspir ed Oxygen Hydration adequate: Yes Nausea and vomiting: No Pain level: 1 Mental status: Baseline
[2020-09-28 03:49] LABS: OR HCG Qualitative Urine Negative (Negative)
== END 2020-09-27 10:00 | disposition home or self-care (01) ==
PROVIDERS: Anesthesiology; PCP Nurse Practitioner Family; Visit Provider Surgery
PROC: 0DJD8ZZ Inspection of Lower Intestinal Tract, Via Natural or Artificial Opening Endoscopic (ICD-10-PCS; CPT 45378; principal; 2020-09-27 08:45)
DX: K59.00 Constipation, unspecified (principal); K21.9 Gastro-esophageal reflux disease without esophagitis; F41.9 Anxiety disorder, unspecified
CPT/HCPCS: 45378; 81025; 84703; 96360; 96361; J2250; J2704; J7030

== ENCOUNTER 2021-02-09 13:12 | Emergency (ER) | payer BC, SELFPAY ==
[2021-02-09] VITALS (7 sets, daily range): BP systolic 100–129; BP diastolic 65–79; PULSE 69–107; RESP 16–24; TEMP 36.5; O2SAT 97–100; BMI 21.7
[2021-02-09 13:59] LABS: Charge for UA Resulting for Rev
[2021-02-09 14:09] LABS: Add Urine Microscopic? YES; Bilirubin Urine Neg (Negative); Blood Urine Neg (Negative); Glucose Urine UA Norm (Normal); Ketones Urine Negative (Negative); Leukocyte Esterase Urine 2+ (Negative); Nitrate Urine Negative (Negative); Protein Urine Neg (Negative); Specific Gravity, Urine 1.005 (1.005-1.030); Sulfosalicylic Acid Urine Negative (Negative); Urine Appearance Hazy (CLEAR); Urine Color Colorless (Yellow); Urobilinogen Urine Norm (Negative); pH Urine 8 (5-7)
[2021-02-09 14:14] LABS: Add Urine Culture? Yes; Bacteria Urine 2+ /hpf; WBC Urine 15-25 /hpf (0-5)
--- NOTE | 2021-02-09 14:40 | PC.NURSE ---
pt c/o about dizziness and headache, left chest breast pain. No n/V
--- NOTE | 2021-02-09 16:55 | XRR_ITS ---
PROCEDURE INFORMATION: Exam: XR Chest Exam date and time: 02/09/2021 4:55 PM Age: 30 years old Clinical indication: Sternal or substernal pain; Patient HX: Increasing chest pain x 5days TECHNIQUE: Imaging protocol: XR of the chest. Views: 1 view. Total images: 1 COMPARISON: CT abdomen pelvis w con* [id number] 07/11/2020 5:09 PM FINDINGS: Lungs: No visible active interstitial or alveolar airspace disease. Hyperinflation and query a history of reactive airway disease/asthma/chronic bronchitis. Pleural spaces: Unremarkable. No pleural effusion. No pneumothorax. Heart/Mediastinum: Unremarkable. No cardiomegaly. Bones/joints: Unremarkable. XR/XR chest 1V portable [id number] IMPRESSION: Hyperinflation.
--- NOTE | 2021-02-09 17:32 | ED_ITS ---
HPI - Chest Pain General: Chief Complaint: Chest Pain Stated Complaint: CP Time Seen by Provider: 02/09/21 17:32 History of Present Illness: HPI narrative: 30-year-old female comes in today for evaluation midsternal chest discomfort radiating to the left breast. Patient has a history of gastroparesis with dilation of the distal stomach. This was done within the last few months due to some persistent gastritis and gastric discomfort. Patient has seen Dr. Borges and a specialist in [place]. Patient appears well. Patient appears in mild pain. MD complaint: chest discomfort Associated symptoms: Reports abdominal pain, nausea and vomiting Review of Systems General: Reports: 10 or more systems reviewed and unremarkable except in HPI and below GI: Reports: abdominal pain, nausea and vomiting PFS ED PFSH: Medical History Constipation Family History Denies family history of Anesthesia complication Bleeding disorder Social History Smoking and tobacco status: never smoked Female Reproductive History: Date of last menstrual period: 02/03/21 Physical Exam Const: COMMON NORMALS: no acute distress and patient oriented x3 GENERAL APPEARANCE: cooperative HENMT: COMMON NORMALS: normocephalic and Normal external nose present HEAD & SCALP: normal to inspection and normocephalic NOSE: Normal external nose present MOUTH: Normal oral and palatal mucosa present THROAT: posterior oropharynx abnormal erythema Eye: GENERAL EYE: appearance normal, both eyes and all related structures Neck/C-Spine: COMMON NORMALS: full ROM Chest: COMMONS NORMALS: normal inspection of the chest Resp: COMMON NORMALS: normal respiratory effort EFFORT & INSPECTION: Yes able to speak in complete sentences Cardio: COMMON NORMALS: regular rate and regular rhythm RATE: regular rate RHYTHM: regular rhythm GI: COMMON NORMALS: Soft to palpation PALPATION: Yes Soft to palpation and Yes Tenderness to palpation present (GI) (mild diffuse, increased in mid epigastric) : COMMON NORMALS: Yes no CVA tenderness BLADDER/KIDNEY EXAM: Yes no CVA tenderness Back/Pelvis: COMMON NORMALS: no CVA tenderness and thoracic and lumbar spine normal to inspection Extremity: COMMON NORMALS: normal to inspection Neuro: COMMON NORMALS: patient oriented x3 and moves all extremities Psych: COMMON NORMALS: mental status grossly normal and cooperative Skin: COMMON NORMALS: no rashes or lesions noted GENERAL SKIN EXAM: no rashes or lesions noted Course Vital Signs: Vital signs: Vital Signs Temperature 97.7 F 02/09/21 13:21 Pulse Rate 72 02/09/21 18:30 Respiratory Rate 16 02/09/21 18:30 Blood Pressure 113/73 02/09/21 18:30 Pulse Oximetry 97 02/09/21 18:30 MDM - Chest Pain MDM Narrative: Medical decision making narrative: 30-year-old female comes in with some epigastric pain radiating up into her left chest wall. On exam patient appears well. Patient appears in no acute distress. Lungs are clear to auscultation. No CVA tenderness. Mid epigastric discomfort is noted to palpation of abdomen. Bowel sounds present. Skin is warm and dry. Differential diagnosis includes but not limited to ACS, costochondritis, gastrit is, atypical chest pain. CBC and CMP were unremarkable. Patient was given 5 mg of Reglan but did not tolerate it well it made her feel restless and more anxious. Patient was given 12-1/2 mg to counteract the sensation. Patient was also given a GI cocktail with minimal relief of gastric discomfort. Urinalysis was positive for white blood cells and red blood cells with a small amount of squamous cells suggesting a urinary tract infection. Patient was given 1 g of Rocephin IV to continue with Macrobid 1 twice a day for 5 days. Encourage plenty of fluids follow-up with primary care for recheck of urine in 1 week. Return to the ER for worsening symptoms or new concerns. Lab Data: Labs: Lab Results 02/09/21 02/09/21 02/09/21 13:45 17:39 17:39 WBC 5.0 10^3/uL 10^3/ uL (4.0-10.0) RBC 4.58 10^6/uL 10^6 /uL (4.1-5.3) Hgb 13.6 g/dL g/dL (11.5-15.3) Hct 41.5 % % (37.0-47.0) MCV 90.6 fl fl (81-99) MCH 29.7 pg pg (28.0-34.0) MCHC 32.8 g/dL g/dL (30.0-36.0) RDW 13.2 % % (12.1-15.1) Plt Count 271 10^3/cmm 10^3 /cmm (130-400) MPV 9.9 fL fL (7.4-10.4) Neut % (Auto) 50.9 % % Lymph % (Auto) 40.3 % % [place] % (Auto) 7.0 % % Eos % (Auto) 1.0 % % Baso % (Auto) 0.6 % % Neut # (Auto) 2.55 10^3/uL 10^3 /uL (1.8-7.7) Lymph # (Auto) 2.0 10^3/uL 10^3/ uL (0.8-4.8) [place] # (Auto) 0.4 10^3/uL 10^3/ uL (0.2-0.9) Eos # (Auto) 0.1 10^3/uL 10^3/ uL (0.0-0.8) Baso # (Auto) 0.0 10^3/uL 10^3/ uL (0.0-0.1) Nucleated RBC % (a uto) 0 % % Nucleated RBCs # 0.0 /100WBC /100W BC Sodium 139 mmol/L mmol/L (136-145) Potassium 3.9 mmol/L mmol/L (3.5-5.1) Chloride 99 mmol/L mmol/L (98-107) Carbon Dioxide 25 mmol/L mmol/L (22-29) Anion Gap 18.9 (5-19) BUN 11 mg/dL mg/dL (6-20) Creatinine 0.5 mg/dL mg/dL (0.5-0.9) GFR Calculation 146.9 mL/min H mL /min (90-130) Glucose 83 mg/dL mg/dL (65-115) Calculated Osmolal ity 287 mOsm/kg mOsm/ kg (285-295) Calcium 9.9 mg/dL mg/dL (8.5-10.5) Total Bilirubin 1.3 mg/dL H mg/dL (0.15-1.2) AST 14 U/L U/L (0-32) ALT 11 U/L U/L (0-33) Alkaline Phosphata se 70 IU/L IU/L (35-105) Troponin T Baselin e Total Protein 8.0 g/dL g/dL (6.6-8.7) Albumin 5.0 g/dL g/dL (3.5-5.2) Globulin 3.0 g/dL g/dL (1.3-4.6) Urine Color Colorless (Yellow) Urine Appearance Hazy A (CLEAR) Urine pH 8 H (5-7) Ur Specific Gravit y 1.005 (1.005-1.030) Urine Protein Neg (Negative) Urine Glucose (UA) Norm (Normal) Urine Ketones Negative (Negative) Urine Blood Neg (Negative) Urine Nitrate Negative (Negative) Urine Bilirubin Neg (Negative) Prot Sulfosalicyli c Acd Negative (Negative) Urine Urobilinogen Norm mg/dL mg/dL (Negative) Ur Leukocyte Penny ase 2+ H (Negative) Urine RBC Not Reportable Urine WBC 15-25 /hpf H /hpf (0-5) Ur Squamous Epith Cells 5-10 /hpf H /hpf (0-5) Amorphous Sediment Not Reportable Urine Bacteria 2+ /hpf H /hpf (NONE) 02/09/21 17:39 WBC RBC Hgb Hct MCV MCH MCHC RDW Plt Count MPV Neut % (Auto) Lymph % (Auto) [place] % (Auto) Eos % (Auto) Baso % (Auto) Neut # (Auto) Lymph # (Auto) [place] # (Auto) Eos # (Auto) Baso # (Auto) Nucleated RBC % (a uto) Nucleated RBCs # Sodium Potassium Chloride Carbon Dioxide Anion Gap BUN Creatinine GFR Calculation Glucose Calculated Osmolal ity Calcium Total Bilirubin AST ALT Alkaline Phosphata se Troponin T Baselin e 8 ng/L ng/L (0-10) Total Protein Albumin Globulin Urine Color Urine Appearance Urine pH Ur Specific Gravit y Urine Protein Urine Glucose (UA) Urine Ketones Urine Blood Urine Nitrate Urine Bilirubin Prot Sulfosalicyli c Acd Urine Urobilinogen Ur Leukocyte Penny ase Urine RBC Urine WBC Ur Squamous Epith Cells Amorphous Sediment Urine Bacteria Discharge Plan Discharge Patient Disposition: Home Clinical Impression: Atypical chest pain UTI (urinary tract infection) Qualifiers: Urinary tract infection type: site unspecified Hematuria presence: without hematuria Qualified Code(s): N39.0 - Urinary tract infection, site not specified Condition: Stable Prescriptions: New Macrobid 100 mg capsule 100 mg PO BID 5 Days Qty: 10 RF: 0 ondansetron 4 mg tablet,disintegrating 4 mg PO Q8H PRN (Reason: nausea and vomiting) Qty: 7 RF: 0 No Action polyethylene glycol 3350 [Miralax] 17 gram/dose powder 17 g PO DAILY PRN (Reason: Constipation) RF: 0 sucralfate [Carafate] 1 gram tablet 1 g PO Q6H 30 Days Qty: 120 RF: 0 omeprazole 20 mg Capsule,Delayed Release(Dr/Ec) 20 mg PO EVERY OTHER DAY RF: 0 Discharge Orders: Discharge ED (Routine); Ordered 02/09/21 Ordered By: Jefe Coley Referrals: Lizzy Alexander, SENIOR PLANNING MANAGER [Primary Care Provider] - Discharge Diet: Usual diet Patient Instructions: Chest Pain (ED), Opioid Safety Activity Restrictions/Additional Instructions: Continue with routine care. Drink plenty of water with medication. Follow-up with primary care in 3 to 5 days for recheck of urine. Return to the ER for new concerns. Coding Level of Care Code ED Emergency Vehicle Operations Instructor for Chg Fwd Exam Comprehensive
[2021-02-09 17:45] LABS: Basophils % 0.6 %; Eosinophils # 0.1 10^3/uL (0.0-0.8); Hematocrit 41.5 % (37.0-47.0); Hemoglobin 13.6 g/dL (11.5-15.3); Lymphocytes % 40.3 %; Mean Corpuscular HGB Conc 32.8 g/dL (30.0-36.0); Mean Corpuscular Hemoglobin 29.7 pg (28.0-34.0); Mean Corpuscular Volume 90.6 fl (81-99); Mean Platelet Volume 9.9 fL (7.4-10.4); Monocytes # 0.4 10^3/uL (0.2-0.9); Neutrophils # 2.55 10^3/uL (1.8-7.7); Neutrophils % 50.9 %; Nucleated Red Blood Cells % 0 %; Platelet Count 271 10^3/cmm (130-400); Red Blood Count 4.58 10^6/uL (4.1-5.3); Red Cell Distribution Width 13.2 % (12.1-15.1)
[2021-02-09] MEDS: lidocaine 2% viscous 15 ML, aluminum-mag hydrox-simethicon 30 ML, sucralfate oral liq 1 GM PO (17:50)
[2021-02-09] MEDS: metoclopramide 5 mg/mL SDV 2 mL IVP (17:53)
[2021-02-09] MEDS: sodium chloride 0.9% 500 ML IV (17:54)
[2021-02-09 18:09] LABS: Troponin(5th) Baseline 8 ng/L (0-10)
[2021-02-09 18:11] LABS: Alanine Aminotransferase 11 U/L (0-33); Alkaline Phosphatase 70 IU/L (35-105); Aspartate Amino Transferase 14 U/L (0-32); Blood Urea Nitrogen 11 mg/dL (6-20); Calcium 9.9 mg/dL (8.5-10.5); Carbon Dioxide 25 mmol/L (22-29); Chloride 99 mmol/L (98-107); Glomerular Filtration Rate 146.9 mL/min (90-130); Glucose 83 mg/dL (65-115); Osmolality Calculated 287 mOsm/kg (285-295); Sodium 139 mmol/L (136-145); Total Bilirubin 1.3 mg/dL (0.15-1.2)
[2021-02-09 18:19] LABS: Anion Gap 18.9 (5-19); Potassium 3.9 mmol/L (3.5-5.1)
[2021-02-09] MEDS: diphenhydrAMINE 50 mg/mL SDV 1mL 12.5 MG IVP (18:19)
--- NOTE | 2021-02-09 18:55 | ECG_ITS ---
[facility] Test Date: 2021-02-09 Pat Name: Vicky Pal Department: Room: Gender: Female Stick Puller: : 1990 Requested By: Dylan Arrington Order Number: [id number] Reading MD: NIYA REY Measurements Intervals [place] Rate: 83 P: 75 SC: 115 QRS: 87 QRSD: 86 T: 66 QT: 377 QTc: 444 Interpretive Statements SINUS RHYTHM WITH SHORT SC INTERVAL No previous ECG available for comparison Electronically Signed On 02-10-2021 18:25:51 CDT by NIYA REY [email or web address]
== END 2021-02-09 19:46 | disposition home or self-care (01) ==
PROVIDERS: Family Medicine; Emergency Provider Nurse Practitioner Family; PCP Nurse Practitioner Family
DX: R07.89 Other chest pain (principal); N39.0 Urinary tract infection, site not specified
CPT/HCPCS: 71045; 80053; 81001; 81003; 84484; 85025; 87086; 93005; 96361; 96374; 96375; 99284; J1200; J2765; J7040

== ENCOUNTER 2024-02-03 06:36 | Day surgery (SDC) | payer OTHER, SELFPAY ==
[2024-02-03] VITALS (17 sets, daily range): BP systolic 104–141; BP diastolic 66–95; PULSE 60–85; RESP 16–177; TEMP 36.1–37; O2SAT 96–100; BMI 17.9
--- NOTE | 2024-02-03 06:59 | W.PM.OPSUD ---
Surgery/Procedure H&P Update DATE OF PROCEDURE: February 03, 2024 DATE H&P PERFORMED: 01/19/24 H&P UPDATE INFORMATION: I have reviewed H&P completed within last 30 days, I have examined patient prior to procedure and No changes to prior documentation PLANNED PROCEDURE: Operation Date: 02/03/24 08:25 Proposed Procedures p Laparoscopic Cholecystectomy 12502, K29.70(Not Applicable) - Viral Lopez, DO
[2024-02-03] MEDS: sodium chloride 0.9% 1,000 ML 30 ML IV (07:20)
[2024-02-03 07:21] LABS: OR HCG Qualitative Urine Negative (Negative)
--- NOTE | 2024-02-03 08:44 | ANES.PREANE2 ---
Pre-Anesthetic Assessment Height/Weight: Height 1.5 m Weight 40.37 kg Temp Pulse Resp BP Pulse Ox O2 Del Method 98.6 F 78 17 121/67 98 Room Air 02/03/24 07:12 02/03/24 07:12 02/03/24 07:12 02/03/24 07:12 02/03/24 07:12 02/03/24 07:14 Operation Date: 02/03/24 08:25 Proposed Procedures p Laparoscopic Cholecystectomy 07928, K29.70(Not Applicable) - Viral Lopez DO Familial anesthetic complications: None Was Beta Carlene taken within 24 hours: N/A Was Clonidine taken within 24 hours: N/A Last intake: Intake Last Liquid Date 02/02/24 Last Liquid Time 23:00 Last Solid Date 02/02/24 Last Solid Time 19:00 Social No alcohol and No tobacco Exam alert, oriented x 3, clear to auscultation bilaterally and regular rate & rhythm Airway Mallampati: Class I Dentition: full GI gastraparesis with significant gerd, denies nausea or gerd at the moment Anesthetic Plan ASA status: 2 Anesthesia: General Other: RSI for GERD Risk of > 500 ml blood loss (7ml/kg in children): No Medications/Allergies Home Medications Medication Instructions Recorded Confirmed Last Taken Type pantoprazole 40 mg tablet,delayed 40 mg PO BID 6 weeks #84 tabs 01/19/24 02/02/24 02/02/24 Rx release (Protonix) Allergies Allergy/AdvReac Type Severity Reaction Status Date / Time No Known Allergies Allergy Verified 02/03/24 07:02 Current Medications Generic Name Dose Route Start Last Admin Trade Name Kavehq PRN Reason Stop Dose Admin Sodium Chloride 1,000 mls @ 30 mls/hr 02/03/24 07:00 02/03/24 07:20 Sodium Chloride 0.9% IV 02/04/24 06:59 30 mls/hr .Q24H AMANDA Administration PFSH Anesthesia Medical History Constipation Family History Denies family history of Anesthesia complication Bleeding disorder Social History Smoking and tobacco/nicotine status: never used tobacco/nicotine Female Reproductive History Date of last menstrual period: 01/16/24 Data Anesthesia Cardiac Studies: No Data to Display
[2024-02-03] MEDS: ceFAZolin 2,000 mg SDV 2000 MG IVP (09:10)
[2024-02-03] MEDS: lidocaine-epi 2% PF 1:200,000 20 mL SDV XX (09:37)
--- NOTE | 2024-02-03 10:06 | P.OP_ITS ---
Operative Report Date of procedure: February 03, 2024 Surgeon: Viral Lopez DO Brief History: Very pleasant 33-year-old female presented to the office with biliary dyskinesia. Laparoscopic cholecystectomy was indicated. The risks and benefits were explained and documented. Procedure: Preoperative diagnosis: Biliary dyskinesia Postoperative diagnosis: Same Procedure performed: Laparoscopic cholecystectomy Surgeon: Dr. Viral Lopez DO Estimated blood loss: 5 mL Specimens: Gallbladder to pathology Complications: None apparent Description of procedure: Patient was wheeled into the operative room and placed on the OR table in a supine position. Abdomen was inspected prepped and draped in usual sterile fashion. Time-out was performed and all present were in agreement. A 15 blade scalp was used to make a stab incision in the left upper quadrant and intra- abdominal insufflation was achieved using a Veress needle. After localizing the tissue incisions were made and a 5 millimeter trocar was placed into the umbilicus as well as 2 in the right upper quadrant. A 12 millimeter trocar was placed in the epigastrium. Gallbladder was grasped and elevated. The triangle of Calot was carefully dissected using blunt dissection and electrocautery until the triangle of [place]ot clearly identified. The cystic duct was clipped proximally and double clipped distally. The duct was then ligated proximally. The cystic artery was doubly clipped and ligated. The gallbladder was then removed from the liver bed using electrocautery. The gallbladder was removed from the abdomen using an Endo-Catch bag through the epigastric incision. The liver bed was inspected and no bleeding was seen. The abdomen was irrigated and suctioned. All ports removed. Skin was washed and dried. Incisions were closed with 4-0 Monocryl in a subcuticular interrupted fashion. Skin glue was applied. Patient tolerated the procedure well.
[2024-02-03] MEDS: fentaNYL 50 mcg/mL INJ 2mL IVP ×2 (10:07→10:24)
[2024-02-03] MEDS: HYDROmorphone 1 mg/mL INJ 1 mL 0.5 MG IVP (10:38)
[2024-02-03] MEDS: ketorolac 30 mg/mL INJ IVP (10:50)
--- NOTE | 2024-02-03 11:05 | ANE.PACU2 ---
Inpatient post-anesthesia follow up: Airway intact: Yes Vital signs: Temperature 97.9 F Pulse Rate 64 Respiratory Rate 16 Blood Pressure 110/68 Pulse Oximetry 96 Oxygen Delivery Me thod Room Air Oxygen Flow Rate Fraction of Inspir ed Oxygen Hydration adequate: Yes Nausea and vomiting: No Pain level: 1 Mental status: Baseline
--- NOTE | 2024-02-03 11:22 | SUR.PHASEII ---
Upon arrival to Post op patient was complaining of pain and needing to burp. Stated it felt like the air was trapped in her throat and needed to come out. Nurse assisted patient to stand at side of bed. Massaged throat and back helping patient to release air trapped in her throat. Once patient burped good she was assisted back to bed with HOB elevated. Patient is drinking water and has family at bedside.
--- NOTE | 2024-02-03 12:09 | SUR.PHASEII ---
Hydrocodone was pulled and taken to room to administer. patient states she can not swallow pills and family has requested a liquid form if possible. Surgeon in OR will contact after current surgery case is completed
[2024-02-03] MEDS: ondansetron 2 mg/ML SDV 2 mL 4 MG IVP ×2 (12:23→13:48)
[2024-02-03 13:28] LABS: Basophils % 0.1 %; Hematocrit 33.9 % (36-47); Lymphocytes # 0.4 10^3/uL (0.8-4.8); Lymphocytes % 5.3 %; Mean Corpuscular HGB Conc 32.4 g/dL (30-55); Mean Corpuscular Hemoglobin 29.7 pg (27-33); Mean Corpuscular Volume 91.6 fl (85-98); Mean Platelet Volume 10.6 fL (7.4-10.4); Monocytes # 0.1 10^3/uL (0.2-0.9); Monocytes % 1.4 %; Neutrophils # 7.45 10^3/uL (1.8-7.7); Neutrophils % 92.7 %; Nucleated Red Blood Cells % 0 %; Platelet Count 172 10^3/cmm (157-399); Red Cell Distribution Width 13.3 % (12.1-15.1); White Blood Count 8.04 10^3/uL (3.29-11.43)
--- NOTE | 2024-02-03 14:01 | SUR.PHASEII ---
Patient has had nausea in post op and has been treated with zofran. Patient is pale and can't stay awake. Vital signs are within normal limits. Per Dr Moore a CBC was drawn and sent to lab. Family stated this is normal for patient. Has a hard time waking up after anesthesia.
[2024-02-03] MEDS: metoclopramide 5 mg/mL SDV 2 mL 10 MG IVP (14:53)
[2024-02-03] MEDS: HYDROcodone-APAP 7.5-325 mg/15 mL UDC 7.5 ML PO (15:03)
== END 2024-02-03 15:11 | disposition home or self-care (01) ==
PROVIDERS: Anesthesiology; PCP Nurse Practitioner Family; Visit Provider Surgery
PROC: 0FT44ZZ Resection of Gallbladder, Percutaneous Endoscopic Approach (ICD-10-PCS; CPT 47562; principal; 2024-02-03 08:15)
DX: K80.10 Calculus of gallbladder with chronic cholecystitis without obstruction (principal); K21.9 Gastro-esophageal reflux disease without esophagitis
CPT/HCPCS: 47562; 36415; 81025; 85025; 88304; J0131; J0690; J1100; J1170; J1885; J2405; J2704; J2710; J2765; J3010; J3490; J7030

== ENCOUNTER 2024-02-05 11:16 | Emergency (ER) | payer OTHER, SELFPAY ==
[2024-02-05] VITALS (7 sets, daily range): BP systolic 111–146; BP diastolic 77–94; PULSE 78–99; RESP 15–26; TEMP 36.4; O2SAT 96–100; BMI 17.9
--- NOTE | 2024-02-05 11:50 | ED_ITS ---
HPI - Abdominal Pain 2 General: Chief Complaint: Abdominal Pain Stated Complaint: post op problems Time Seen by Provider: 02/05/24 11:33 Source: patient Mode of arrival: ambulatory Limitations: no limitations History of Present Illness: 33-year-old female that had a cholecyste ctomy laparoscopically on Friday states she has been having severe pain since then states her pain is diffuse in her abdomen rates it a 9 out of 10 she has had some constipation denies any vomiting denies any fevers denies any worse improving factors. Associated Symptoms: Denies chills, diarrhea, dysuria, fever(s), nausea and vomiting Related Data Previous Rx's Medication Instructions Recorded pantoprazole 40 mg tablet,delayed 40 mg PO BID 6 weeks #84 tabs 01/19/24 release (Protonix) docusate sodium 100 mg capsule 100 mg PO BID #14 caps 02/03/24 (Colace) hydrocodone 10 mg-acetaminophen 10 ml PO Q6H PRN pain #200 mL 02/03/24 325 mg/15 mL (15 mL) oral solution polyethylene glycol 3350 17 17 g PO DAILY 7 days #119 grams 02/03/24 gram/dose oral powder (Miralax) Allergies Allergy/AdvReac Type Severity Reaction Status Date / Time No Known Allergies Allergy Verified 02/03/24 07:02 Review of Systems 2 Const: Denies: fever(s), chills, body aches or change in appetite ENMT: Denies: throat pain or dental pain Card: Denies: chest pain Resp: Denies: dyspnea GI: Reports: abdominal pain; Denies: nausea, vomiting or diarrhea : Denies: dysuria Musc: Denies: neck pain or back pain Skin/Breast: Denies: rash Neuro: Denies: headache(s) PFSH ED 2 PFSH: Medical History Constipation Family History Denies family history of Anesthesia complication Bleeding disorder Social History Smoking and tobacco/nicotine status: never used tobacco/nicotine Physical Exam 2 Const: COMMON NORMALS: no acute distress, patient oriented x3 and healthy appearing HENMT: COMMON NORMALS: normocephalic and atraumatic HEAD & SCALP: n ormocephalic and atraumatic Neck/C-Spine: COMMON NORMALS: full ROM and supple Chest: COMMONS NORMALS: normal inspection of the chest Resp: COMMON NORMALS: normal respiratory effort, No retractions, No use of accessory muscles and clear to auscultation bilaterally AUSCULTATION: clear to auscultation bilaterally Cardio: COMMON NORMALS: regular rate, regular rhythm and No murmurs present (Cardio) RATE: regular rate RHYTHM: regular rhythm GI: OTHER: Diffuse tenderness incisions are clean dry and intact Extremity: COMMON NORMALS: normal to inspection and full ROM Neuro: COMMON NORMALS: patient oriented x3, moves all extremities and no focal motor deficits Psych: COMMON NORMALS: mental status grossly normal, Normal thought process present and cooperative THOUGHT PROCESS: Normal thought process present Skin: COMMON NORMALS: no rashes or lesions noted and no wounds GENERAL SKIN EXAM: no rashes or lesions noted Course 2 Vital Signs: Vital signs: Vital Signs Temperature 97.6 F 02/05/24 11:35 Pulse Rate 81 02/05/24 14:00 Respiratory Rate 15 02/05/24 13:55 Blood Pressure 146/88 02/05/24 14:00 Pulse Oximetry 96 02/05/24 14:00 Oxygen Delivery Me thod Room Air 02/05/24 14:00 MDM - Abdominal Pain Medical Decision Making Patient presents here with postop abdominal pain her pain is improved here blood works normal CT showed no acute findings does have constipation along with some postop air. I spoke to her surgeon Dr. Lopez we will start her on lactulose did give her MS Dulcolax she is to continue MiraLAX at home follow-up with Dr. Lopez return if worsening. Medical Records I reviewed the patient's medical records. Lab Data I reviewed the patient's lab results. 02/05/24 11:52 02/05/24 11:52 Labs/Radiology: Radiology Impressions Chest X-Ray 02/05/24 12:31 Impression: Negative chest. Chest/Abdomen/Pelvis CT 02/05/24 12:31 IMPRESSION: 1. No evidence of pulmonary embolus. 2. Recent cholecystectomy with normal postoperative fluid in the gallbladder fossa. 3. Moderate amount of free intraperitoneal air somewhat prominent but likely postoperative. Recommend interval follow-up to resolution to exclude perforated viscus. 4. Subcutaneous air in the subcutaneous soft tissues presumably along the trocar sites. 5. Moderate pancolonic constipation worse in the RIGHT colon and cecum. 6. Urine distended bladder. 7. Small amount of free fluid in the pelvis. Notified Juanito Mancini MD at 02/05/2024 1:29 PM. Laboratory Results WBC 6.39 10^3/uL (3.29-11.43) 02/05/24 11:52 RBC 4.32 10^6/uL (3.85-5.65) 02/05/24 11:52 Hgb 12.60 g/dL (11.27-16.99) 02/05/24 11:52 Hct 40.5 % (36-47) 02/05/24 11:52 MCV 93.8 fl (85-98) 02/05/24 11:52 MCH 29.2 pg (27-33) 02/05/24 11:52 MCHC 31.1 g/dL (30-55) 02/05/24 11:52 RDW 13.4 % (12.1-15.1) 02/05/24 11:52 Plt Count 212 10^3/cmm (157-399) 02/05/24 11:52 MPV 10.4 fL (7.4-10.4) 02/05/24 11:52 Neut % (Auto) 72.3 % 02/05/24 11:52 Lymph % (Auto) 20.7 % 02/05/24 11:52 [place] % (Auto) 6.1 % 02/05/24 11:52 Eos % (Auto) 0.5 % 02/05/24 11:52 Baso % (Auto) 0.2 % 02/05/24 11:52 Neut # (Auto) 4.63 10^3/uL (1.8-7.7) 02/05/24 11:52 Lymph # (Auto) 1.3 10^3/uL (0.8-4.8) 02/05/24 11:52 [place] # (Auto) 0.4 10^3/uL (0.2-0.9) 02/05/24 11:52 Eos # (Auto) 0.0 10^3/uL (0.0-0.8) 02/05/24 11:52 Baso # (Auto) 0.0 10^3/uL (0.0-0.1) 02/05/24 11:52 Nucleated RBC % (auto) 0 % 02/05/24 11:52 Nucleated RBCs # 0.0 /100WBC 02/05/24 11:52 Sodium 141 mmol/L (136-145) 02/05/24 11:52 Potassium 4.3 mmol/L (3.5-5.1) 02/05/24 11:52 Chloride 102 mmol/L (98-107) 02/05/24 11:52 Carbon Dioxide 23 mmol/L (22-29) 02/05/24 11:52 Anion Gap 20.3 (5-19) H 02/05/24 11:52 BUN 10 mg/dL (6-20) 02/05/24 11:52 Creatinine 0.7 mg/dL (0.5-0.9) 02/05/24 11:52 GFR Calculation 97.6 mL/min (90-130) 02/05/24 11:52 Glucose 102 mg/dL (65-115) 02/05/24 11:52 Calculated Osmolality 291 mOsm/kg (285-295) 02/05/24 11:52 Lactic Acid 2.5 mmol/L (0.5-2.2) H 02/05/24 11:52 Calcium 9.7 mg/dL (8.5-10.5) 02/05/24 11:52 Total Bilirubin 1.7 mg/dL (0.15-1.2) H 02/05/24 11:52 AST 42 U/L (0-32) H 02/05/24 11:52 ALT 36 U/L (0-33) H 02/05/24 11:52 Alkaline Phosphatase 57 U/L (35-105) 02/05/24 11:52 Total Protein 8.0 g/dL (6.6-8.7) 02/05/24 11:52 Albumin 4.5 g/dL (3.5-5.2) 02/05/24 11:52 Globulin 3.5 g/dL (1.3-4.6) 02/05/24 11:52 Lipase 17 U/L (13-60) 02/05/24 11:52 HCG, Qual Negative (Negative) 02/05/24 11:52 All radiology interpretation(s) finalized by discharge EKG Data EKG 1: I personally reviewed and interpreted this EKG as follows: EKG interpretation date: 02/05/24 EKG interpretation time: 11:37 Interpretation: sinus tach hr [address] elevation qrs 90 qtc 391 Discharge Plan Discharge Patient Disposition: Home Clinical Impression: Abdominal pain, Constipation Condition: Stable Prescriptions: No Action pantoprazole [Protonix] 40 mg tablet,delayed release (DR/EC) 40 mg PO BID 42 Days Qty: 84 1RF docusate sodium [Colace] 100 mg capsule 100 mg PO BID Qty: 14 0RF polyethylene glycol 3350 [Miralax] 17 gram/dose powder 17 g PO DAILY 7 Days Qty: 119 0RF hydrocodone-acetaminophen 10-325 mg/15 mL(15 mL) solution 10 ml PO Q6H PRN (Reason: pain) Qty: 200 0RF Discharge Orders: Discharge ED (Routine); Ordered 02/05/24 Ordered By: Juanito Mancini Referrals: Lizzy Alexander, FIRE MANAGEMENT TECHNICIAN [Primary Care Provider] - Discharge Diet: Advance as tolerated Discharge Activity: Resume usual activity Patient Instructions: Constipation (ED), Abdominal Pain (ED) Coding Level of Care Code ED Pathology Assistant for Demetri Valenzuela
[2024-02-05] MEDS: sodium chloride 0.9% 1,000 ML 999 ML IV (11:59)
[2024-02-05] MEDS: ondansetron 2 mg/ML SDV 2 mL 4 MG IVP (12:01)
[2024-02-05] MEDS: HYDROmorphone 1 mg/mL INJ 1 mL IVP (12:02)
[2024-02-05 12:17] LABS: Basophils % 0.2 %; Eosinophils % 0.5 %; Hematocrit 40.5 % (36-47); Lymphocytes # 1.3 10^3/uL (0.8-4.8); Lymphocytes % 20.7 %; Mean Corpuscular HGB Conc 31.1 g/dL (30-55); Mean Corpuscular Hemoglobin 29.2 pg (27-33); Mean Corpuscular Volume 93.8 fl (85-98); Mean Platelet Volume 10.4 fL (7.4-10.4); Monocytes # 0.4 10^3/uL (0.2-0.9); Monocytes % 6.1 %; Neutrophils # 4.63 10^3/uL (1.8-7.7); Neutrophils % 72.3 %; Nucleated Red Blood Cells % 0 %; Platelet Count 212 10^3/cmm (157-399); Red Blood Count 4.32 10^6/uL (3.85-5.65); Red Cell Distribution Width 13.4 % (12.1-15.1); White Blood Count 6.39 10^3/uL (3.29-11.43)
--- NOTE | 2024-02-05 12:31 | CT_ITS ---
WS: [id number] CTA CHEST WITH ABDOMEN AND PELVIS TECHNIQUE: Contrast enhanced CTA of the chest, abdomen, and pelvis with coronal and sagittal reformat nicole images and additional MIP Images. CLINICAL INFORMATION: sob COMPARISON: CT 2020 DLP: 461.[address] scans at [facility] use at least one of these dose optimization techniques: automated e xposure control; mA and/or kV adjustment per patient size (includes targeted exams where dose is matc hed to clinical indication); or iterative reconstruction. FINDINGS: Proximal main pulmonary arteries are normal. Normal segmental and subsegmental pulmonary arteries. No evidence of pulmonary embolus. Normal caliber thoracic aorta. Lungs are well aerated. No acute pulmonary infiltrates. No focal pneum onia or pleural fluid. Status post recent cholecystectomy. Cholecystectomy clips. Normal postoperative trace fluid in the ga llbladder fossa. Moderate amount of free intraperitoneal air may be normal postoperative but recommen d follow-up to resolution. In addition air within the subcutaneous soft tissues presumably along the trocar sites. Air-fluid level in the stomach. Small amount of free fluid in the pelvis. Urine distend ed bladder. RIGHT colon constipation. Dense constipation LEFT colon. Adrenal glands are normal. No hydronephrosis. Normal caliber abdominal aorta. Normal visualized commo n bile duct. Normal portal vein and splenic vein. CT/CT angio chest w abd pel w con IMPRESSION: 1. No evidence of pulmonary embolus. 2. Recent cholecystectomy with normal postoperative fluid in the gallbladder f skip. 3. Moderate amount of free intraperitoneal air somewhat prominent but likely p ostoperative. Recommend interval follow-up to resolution to exclude perforated viscus. 4. Subcutaneous air in the subcutaneous soft tissues presumably along the troc ar sites. 5. Moderate pancolonic constipation worse in the RIGHT colon and cecum. 6. Urine distended bladder. 7. Small amount of free fluid in the pelvis. Notified Juanito Mancini MD at 02/05/2024 1:29 PM.
--- NOTE | 2024-02-05 12:31 | XR_ITS ---
WS: [id number] Portable AP semiupright chest, 02/05/2024 Clinical Data: sob Comparison: Portable chest, 02/09/2021 Findings: No nodules, masses or effusions are seen. The heart is normal. The pulmonary vascularity is not increased. No pneumonia or pneumothorax is seen. There is air in the left upper quadrant from t he colon. Monitor leads are on the chest wall. XR/XR chest 1V portable [id number] Impression: Negative chest.
[2024-02-05 12:35] LABS: HCG, Serum Qual Negative (Negative)
[2024-02-05] MEDS: LORazepam 2 mg/mL INJ 1 mL 0.5 MG IVP (12:35)
--- NOTE | 2024-02-05 12:39 | PC.NURSE ---
pt upon arrival to er pt was moaning, groaning, and unable to speak clearly d/t pain. pt given pain meds. pt then was resting for short time frame. pt was having shallow breaths, Dr. Baron notified. pt now c/o pain coming back, Dr. baron requests that CT scan done prior to any further pain meds. pt currently stating I can't breath pt O2 sat 99% RA, RR 24. pt able to communicate at this time, a/o.
[2024-02-05 12:43] LABS: Alanine Aminotransferase 36 U/L (0-33); Albumin Level 4.5 g/dL (3.5-5.2); Alkaline Phosphatase 57 U/L (35-105); Blood Urea Nitrogen 10 mg/dL (6-20); Calcium 9.7 mg/dL (8.5-10.5); Carbon Dioxide 23 mmol/L (22-29); Chloride 102 mmol/L (98-107); Creatinine Clr Calc Pharmacy 74.2119; Globulin 3.5 g/dL (1.3-4.6); Glomerular Filtration Rate 97.6 mL/min (90-130); Glucose 102 mg/dL (65-115); Lipase 17 U/L (13-60); Osmolality Calculated 291 mOsm/kg (285-295); Sodium 141 mmol/L (136-145); Total Bilirubin 1.7 mg/dL (0.15-1.2)
[2024-02-05] MEDS: iohexol 350 mg/mL 500 mL Btl (per mL) IV (12:58)
[2024-02-05 13:00] LABS: Anion Gap 20.3 (5-19); Aspartate Amino Transferase 42 U/L (0-32); Potassium 4.3 mmol/L (3.5-5.1)
--- NOTE | 2024-02-05 13:03 | ECG_ITS ---
[facility] Test Date: 2024-02-05 Pat Name: Vicky Pal Department: Room: Gender: Female Senior Physician: : 1990 Requested By: Juanito Mancini Order Number: [id number] Serena MD: Dexter Miguel M.D. Measurements Intervals [place] Rate: 102 P: 78 NM: 116 QRS: 91 QRSD: 90 T: 61 QT: 332 QTc: 434 Interpretive Statements SINUS TACHYCARDIA WITH SHORT NM INTERVAL BORDERLINE RIGHT AXIS DEVIATION [QRS AXIS > 90] Compared to ECG 02/09/2021 19:14:58 Sinus rhythm no longer present Electronically Signed On 02-05-2024 16:35:12 CDT by Dexter Miguel M.D. [email or web address]
[2024-02-05 14:06] LABS: Lactic Sepsis W/Reflex 2.5 mmol/L (0.5-2.2)
[2024-02-05] MEDS: lactulose oral liq 20 gm/30 mL UDC 30 GM PO (14:20)
[2024-02-05] MEDS: bisacodyl 10 mg Supp PR (14:22)
[2024-02-05 15:25] LABS: Reflex Lactate Order REFLEX LACTIC ORDERD
== END 2024-02-05 14:36 | disposition home or self-care (01) ==
PROVIDERS: Emergency Provider Emergency Medicine; PCP Nurse Practitioner Family
DX: K59.00 Constipation, unspecified (principal); R00.0 Tachycardia, unspecified; R10.9 Unspecified abdominal pain
CPT/HCPCS: 71045; 71275; 74177; 80053; 83605; 83690; 84703; 85025; 93005; 96361; 96374; 96375; 99285; J1170; J2060; J2405; J7030

== ENCOUNTER → 2024-03-25 10:26 | Outpatient (BNVA) | payer OTHER, SELFPAY | PROVIDERS: PCP Nurse Practitioner Family; Visit Provider Surgery | DX: R10.9 Unspecified abdominal pain (principal) | CPT/HCPCS: 86003; 86008 ==

== ENCOUNTER 2024-06-26 13:45 | Emergency (ER) | payer OTHER, SELFPAY ==
[2024-06-26] VITALS (7 sets, daily range): BP systolic 121–137; BP diastolic 72–89; PULSE 69–100; RESP 16; TEMP 36.6; O2SAT 97–100; BMI 18.1
[2024-06-26 14:36] LABS: Basophils % 0.5 %; Eosinophils % 0.7 %; Hematocrit 37.4 % (36-47); Lymphocytes # 1.7 10^3/uL (0.8-4.8); Mean Corpuscular HGB Conc 31.8 g/dL (30-55); Mean Platelet Volume 10.2 fL (7.4-10.4); Monocytes # 0.3 10^3/uL (0.2-0.9); Monocytes % 7.4 %; Neutrophils # 1.99 10^3/uL (1.8-7.7); Neutrophils % 49.2 %; Nucleated Red Blood Cells % 0 %; Platelet Count 210 10^3/cmm (157-399); Red Blood Count 4.11 10^6/uL (3.85-5.65); Red Cell Distribution Width 13.5 % (12.1-15.1); White Blood Count 4.05 10^3/uL (3.29-11.43)
[2024-06-26 14:44] LABS: HCG, Serum Qual Negative (Negative)
--- NOTE | 2024-06-26 14:48 | W.ED.ABDPA2 ---
HPI - Abdominal Pain General: Chief Complaint: Abdominal Pain Stated Complaint: abdominal pain Time Seen by Provider: 06/26/24 14:47 History of Present Illness: 34-year-old female complaining of abdominal pain. She is also complaining of a bit of a headache. She previously had biliary colic and did undergo a cholecystectomy. She states pain began 3 days ago gotten progressively worse she denies dysuria urgency or frequency no hematemesis or coffee-ground emesis no hematuria. She has been nauseous but not vomited significantly. She states pain radiates up into her neck and shoulders at times. Notices thing that exacerbates or relieves it. Associated Symptoms: Denies chills, dysuria and fever(s) Related Data Home Medications ?Medication ?Instructions ?Recorded ?Confirmed omeprazole 20 mg capsule,delayed 20 mg PO DAILY 03/25/24 03/25/24 release Previous Rx's ?Medication ?Instructions ?Recorded docusate sodium 100 mg capsule 100 mg PO BID #14 caps 02/03/24 (Colace) hydroxyzine HCl 10 mg tablet 10 mg PO Q6H PRN anxiety #10 tabs 06/26/24 sucralfate 1 gram tablet (Carafate) 1 g PO Q6H PRN stomach upset #60 06/26/24 tabs Allergies Allergy/AdvReac Type Severity Reaction Status Date / Time hydrocodone Allergy vomiting Verified 06/26/24 13:03 and trouble breathing metoclopramide (From Reglan) AdvReac Unknown Verified 06/26/24 13:05 Review of Systems Const: Denies: fever(s) or chills Card: Denies: chest pain Resp: Denies: dyspnea GI: Reports: abdominal pain : Denies: dysuria, urinary frequency or urinary urgency Musc: Denies: neck pain or back pain Skin/Breast: Denies: rash PFSH ED PFSH: Medical History Constipation Surgical History Hx of cholecystectomy History of esophagogastroduodenoscopy (EGD) (~07/2020) 2020 Family History Denies family history of Anesthesia complication Bleeding disorder Social History Smoking and tobacco/nicotine status: never used tobacco/nicotine Physical Exam Const: GENERAL APPEARANCE: cooperative ORIENTATION/CONSCIOUSNESS: Yes awake, Yes oriented to person, Yes oriented to place and Yes oriented to time HENMT: COMMON NORMALS: normocephalic, atraumatic and hearing grossly normal bilaterally HEAD & SCALP: normocephalic and atraumatic OTHER: TMs bilaterally clear Neck/C-Spine: COMMON NORMALS: full ROM, no lymphadenopathy, supple and no meningeal signs Resp: COMMON NORMALS: normal respiratory effort, No retractions, No use of accessory muscles and clear to auscultation bilaterally AUSCULTATION: clear to auscultation bilaterally Cardio: COMMON NORMALS: regular rate, regular rhythm and No murmurs present (Cardio) RATE: regular rate RHYTHM: regular rhythm GI: COMMON NORMALS: No hepatosplenomegaly present AUSCULTATION: Yes normoactive bowel sounds PALPATION: Yes Tenderness to palpation present (GI), No Guarding due to palpation present (GI) and Yes No hepatosplenomegaly present Extremity: COMMON NORMALS: normal to inspection, capillary refill normal, no clubbing, cyanosis or edema, no calf tenderness and no pedal edema Neuro: SENSORIUM/ORIENTATION: Yes oriented to person, Yes oriented to place and Yes oriented to time MENINGEAL SIGNS: Yes no meningeal signs Skin: COMMON NORMALS: no rashes or lesions noted GENERAL SKIN EXAM: no rashes or lesions noted Course Vital Signs: Vital signs: Vital Signs Temperature 97.8 F 06/26/24 14:05 Pulse Rate 96 06/26/24 15:30 Respiratory Rate 16 06/26/24 14:05 Blood Pressure 136/81 06/26/24 15:30 Pulse Oximetry 100 06/26/24 15:30 Oxygen Delivery Me thod Room Air 06/26/24 14:05 MDM - Abdominal Pain Medical Decision Making Patient complaining of a headache and stomach discomfort. She has a fair amount of air in her bowel. Her exam is generally very benign there is no focal neurologic deficits no lateralizing symptoms. There is a great deal of anxiety she even brings that up herself. I think that may be driving a good part of it some of this may be a viral infection. Her white count is normal CT of your abdomen is unremarkable. Will discharge the patient home we gave her Compazine and Toradol for headache she this precipitated a little bit of this parameter reaction we will give her Benadryl which did resolve her symptoms. She is very sleepy after this discussed with him as to be expected. Encourage clear liquid diet. She been complaining of a lot of stomach upset and loss of appetite burning sensation in her stomach she has no sign of a GI bleed based on her history of on her labs gave her Carafate use. Follow-up with primary care doctor Medical Records I reviewed the patient's medical records. Lab Data I reviewed the patient's lab results. 06/26/24 14:28 06/26/24 14:28 Labs/Radiology: Radiology Impressions Abdomen/Pelvis CT 06/26/24 15:08 IMPRESSION: No acute intra-abdominal findings. Laboratory Results WBC 4.05 10^3/uL (3.29-11.43) 06/26/24 14: RBC 4.11 10^6/uL (3.85-5.65) 06/26/24 14:28 Hgb 11.90 g/dL (11.27-16.99) 06/26/24 14:28 Hct 37.4 % (36-47) 06/26/24 14:28 MCV 91.0 fl (85-98) 06/26/24 14:28 MCH 29.0 pg (27-33) 06/26/24 14:28 MCHC 31.8 g/dL (30-55) 06/26/24 14:28 RDW 13.5 % (12.1-15.1) 06/26/24 14:28 Plt Count 210 10^3/cmm (157-399) 06/26/24 14:28 MPV 10.2 fL (7.4-10.4) 06/26/24 14:28 Neut % (Auto) 49.2 % 06/26/24 14:28 Lymph % (Auto) 42.0 % 06/26/24 14:28 [place] % (Auto) 7.4 % 06/26/24 14:28 Eos % (Auto) 0.7 % 06/26/24 14:28 Baso % (Auto) 0.5 % 06/26/24 14:28 Neut # (Auto) 1.99 10^3/uL (1.8-7.7) 06/26/24 14: Lymph # (Auto) 1.7 10^3/uL (0.8-4.8) 06/26/24 14: [place] # (Auto) 0.3 10^3/uL (0.2-0.9) 06/26/24 14:28 Eos # (Auto) 0.0 10^3/uL (0.0-0.8) 06/26/24 14: Baso # (Auto) 0.0 10^3/uL (0.0-0.1) 06/26/24 14: Nucleated RBC % (auto) 0 % 06/26/24 14: Nucleated RBCs # 0.0 /100WBC 06/26/24 14: Sodium 138 mmol/L (136-145) 06/26/24 14: Potassium 3.4 mmol/L (3.5-5.1) L 06/26/24 14: Chloride 100 mmol/L (98-107) 06/26/24 14: Carbon Dioxide 24 mmol/L (22-29) 06/26/24 14: Anion Gap 17.4 (5-19) 06/26/24 14: BUN 7 mg/dL (6-20) 06/26/24 14: Creatinine 0.7 mg/dL (0.5-0.9) 06/26/24 14: GFR Calculation 97.0 mL/min (90-130) 06/26/24 14: Glucose 105 mg/dL (65-115) 06/26/24 14: Calculated Osmolality 284 mOsm/kg (285-295) L 06/26/24 14:28 Calcium 9.3 mg/dL (8.5-10.5) 06/26/24 14: Total Bilirubin 1.6 mg/dL (0.15-1.2) H 06/26/24 14: AST 12 U/L (0-32) 06/26/24 14:28 ALT 8 U/L (0-33) 06/26/24 14:28 Alkaline Phosphatase 57 U/L (35-105) 06/26/24 14: Total Protein 7.7 g/dL (6.6-8.7) 06/26/24 14:28 Albumin 4.4 g/dL (3.5-5.2) 06/26/24 14:28 Globulin 3.3 g/dL (1.3-4.6) 06/26/24 14:28 Lipase 30 U/L (13-60) 06/26/24 14:28 HCG, Qual Negative (Negative) 06/26/24 14:28 Urine Color Yellow (Yellow) 06/26/24 15:04 Urine Appearance Clear (CLEAR) 06/26/24 15:04 Urine pH 8.0 (5-7) A 06/26/24 15:04 Ur Specific [place] 1.008 (1.005-1.030) 06/26/24 15: Urine Protein Negative (Negative) 06/26/24 15: Urine Glucose (UA) Negative (Normal) 06/26/24 15: Urine Ketones Negative (Negative) 06/26/24 15:04 Urine Blood Negative (Negative) 06/26/24 15:04 Urine Nitrate Negative (Negative) 06/26/24 15: Urine Bilirubin Negative (Negative) 06/26/24 15:04 Urine Urobilinogen 0.2 mg/dL (Negative) 06/26/24 15:04 Ur Leukocyte Esterase 1+ (Negative) A 06/26/24 15:04 Urine RBC 0-2 /hpf (0-2) 06/26/24 15:04 Urine WBC 0-5 /hpf (0-5) 06/26/24 15:04 Ur Squamous Epith Cells 0-5 /hpf (0-5) 06/26/24 15:04 Amorphous Sediment Not Reportable 06/26/24 15:04 Urine Bacteria None seen /hpf (NONE) 06/26/24 15:04 Hyaline Casts 0-4 /lpf H 06/26/24 15:04 All radiology interpretation(s) finalized by discharge Discharge Plan Discharge Patient Disposition: Home Clinical Impression: Abdominal pain, Headache, Anxiety Condition: Stable Prescriptions: New hydroxyzine HCl 10 mg tablet 10 mg PO Q6H PRN (Reason: anxiety) Qty: 10 0RF sucralfate [Carafate] 1 gram tablet 1 g PO Q6H PRN (Reason: stomach upset) Qty: 60 0RF No Action omeprazole 20 mg capsule,delayed release(DR/EC) 20 mg PO DAILY docusate sodium [Colace] 100 mg capsule 100 mg PO BID Qty: 14 0RF Discharge Orders: Discharge ED (Routine); Ordered 06/26/24 Ordered By: Dylan Vazquez Referrals: Lizzy Alexander, [facility] [Primary Care Provider] - Discharge Diet: As Directed Patient Instructions: Diet for Stomach Ulcers and Gastritis (ED), Abdominal Pain (ED), Opioid Safety, Pain Management Activity Restrictions/Additional Instructions: Thank you for choosing [facility] for your healthcare needs today. It is very important that you follow up as instructed or that you return to the Emergency Department should you have concerns or if your condition changes or worsens in any way. You were seen in the emergency room with complaints of headache and abdominal pain laboratory tests were unremarkable CT of your abdomen did not show any acute findings. On exam there were no acute neurologic deficits and no other abnormal findings. No sign of meningitis no ear infections. He did have a moderate amount of gas in her stomach which may be causing abdominal cramping. Does complain of upset stomach frequently. You can use Carafate as needed to supplement your omeprazole. Finally you had mentioned you having difficulty with anxiety you are given hydroxyzine to use as needed for anxiety follow-up your primary care doctor for long-term options Print Language: Lithuanian Coding Level of Care Code ED Industrial Chemistry Teacher for Demetri Valenzuela
[2024-06-26 14:52] LABS: Alanine Aminotransferase 8 U/L (0-33); Albumin Level 4.4 g/dL (3.5-5.2); Alkaline Phosphatase 57 U/L (35-105); Anion Gap 17.4 (5-19); Aspartate Amino Transferase 12 U/L (0-32); Blood Urea Nitrogen 7 mg/dL (6-20); Calcium 9.3 mg/dL (8.5-10.5); Carbon Dioxide 24 mmol/L (22-29); Chloride 100 mmol/L (98-107); Creatinine Clr Calc Pharmacy 74.3562; Globulin 3.3 g/dL (1.3-4.6); Glucose 105 mg/dL (65-115); Lipase 30 U/L (13-60); Osmolality Calculated 284 mOsm/kg (285-295); Potassium 3.4 mmol/L (3.5-5.1); Sodium 138 mmol/L (136-145); Total Bilirubin 1.6 mg/dL (0.15-1.2); Total Protein 7.7 g/dL (6.6-8.7)
--- NOTE | 2024-06-26 15:08 | CTR_ITS ---
PROCEDURE INFORMATION: Exam: CT Abdomen And Pelvis With Contrast Exam date and time: 06/26/2024 3:21 PM Age: 34 years old Clinical indication: Abdominal pain; Epigastric; Prior surgery; Surgery date: 6+ months; Surgery type: Gb; Additional info: Abd pain TECHNIQUE: Imaging protocol: Computed tomography of the abdomen and pelvis with contrast. Radiation optimization: All CT scans at this facility use at least one of these dose optimization techniques: automated exposure control; mA and/or kV adjustment per patient size (includes targeted exams where dose is matched to clinical indication); or iterative reconstruction. Contrast material: OMNIPAQUE 350; Contrast volume: 80 ml; Contrast route: INTRAVENOUS (IV); COMPARISON: CT angio chest w abd pel w con 02/05/2024 12:53 PM RADIATION DOSE METRICS: Total DLP (mGy-cm): 282.6 FINDINGS: Liver: Unremarkable. No mass. Gallbladder and biliary ducts: Status post cholecystectomy. Pancreas: Unremarkable. No ductal dilation. Spleen: Unremarkable. No mass. Adrenal glands: Unremarkable. No mass. Kidneys and ureters: Unremarkable. No stone or hydronephrosis. Stomach and bowel: Moderate colonic stool burden. No significant bowel wall thickening. No bowel obstruction. Appendix: No evidence of appendicitis. Intraperitoneal space: Small volume of pelvic free fluid, presumed physiologic. Vasculature: No abdominal aortic aneurysm. Lymph nodes: No enlarged lymph nodes. Urinary bladder: Unremarkable as visualized. Reproductive: Left ovarian dominant follicle or cyst x 1.9 cm. Bones/joints: No acute fracture. No suspicious lesion. Soft tissues: No bowel containing hernia. CT/CT abdomen pelvis w con* [id number] IMPRESSION: No acute intra-abdominal findings.
[2024-06-26 15:16] LABS: Bilirubin Urine Negative (Negative); Blood Urine Negative (Negative); Glucose Urine UA Negative (Normal); Ketones Urine Negative (Negative); Leukocyte Esterase Urine 1+ (Negative); Nitrate Urine Negative (Negative); Protein Urine Negative (Negative); Specific Gravity, Urine 1.008 (1.005-1.030); Urine Appearance Clear (CLEAR); Urine Color Yellow (Yellow); Urobilinogen Urine 0.2 mg/dL (Negative)
[2024-06-26 15:21] LABS: Add Urine Microscopic? YES; Bacteria Urine None Seen /hpf; Hyaline Casts Urine 0-4 /lpf; RBC Urine 0-2 /hpf (0-2); Squamous Epithelial Cell Urine 0-5 /hpf (0-5); WBC Urine 0-5 /hpf (0-5)
[2024-06-26] MEDS: iohexol 350 mg/mL 500 mL Btl (per mL) IV (15:24)
--- NOTE | 2024-06-26 16:19 | ECG_ITS ---
[facility] Test Date: 2024-06-26 Pat Name: Vicky Pal Department: Room: Gender: Female Linux Network Engineer: : 1990 Requested By: Dylan Arrington Order Number: [id number] Reading MD: NIYA REY Measurements Intervals [place] Rate: 82 P: 75 MA: 109 QRS: 90 QRSD: 88 T: 66 QT: 385 QTc: 450 Interpretive Statements SINUS RHYTHM WITH SHORT MA INTERVAL POSSIBLE RIGHT VENTRICULAR CONDUCTION DELAY [RSR (QR) IN V1/V2] Compared to ECG 02/05/2024 11:37:42 Sinus tachycardia no longer present Electronically Signed On 06-26-2024 19:14:11 PHOTOGRAPHY ASSISTANT by NIYA REY [email or web address] [email or web address]
[2024-06-26] MEDS: ketorolac 30 mg/mL INJ IVP (16:46)
[2024-06-26] MEDS: prochlorperazine 10 mg/2 mL Inj IVP (16:48)
[2024-06-26] MEDS: diphenhydrAMINE 50 mg/mL SDV 1mL IVP (17:02)
== END 2024-06-26 17:42 | disposition home or self-care (01) ==
PROVIDERS: Emergency Medicine; Emergency Provider Family Medicine; PCP Nurse Practitioner Family
DX: R10.9 Unspecified abdominal pain (principal); R51.9 Headache, unspecified; R41.9 Unspecified symptoms and signs involving cognitive functions and awareness
CPT/HCPCS: 36415; 74177; 80053; 81001; 83690; 84703; 85025; 93005; 96374; 96375; 99285; J0780; J1200; J1885